=== PATIENT | female | born 1935 | race Caucasian/White ===

== ENCOUNTER 2018-01-03 22:11 | Inpatient (IN) | payer MEDICARE ==
[~2018-01-03] VITALS: Ht 154.9 cm; Wt 71.9 kg
[~2018-01-03 22:11] MED LIST: ABIL5TAB6 PO; COUM1TAB PO; HYDR-3133 PO; LISI-363 PO; NORC7.5T PO; PROT40TA PO; REST30CA PO; SERT100 PO; TRAV0.00 EACH EYE; Z.0.COMMODE-3:1; Z.0.WALKERFRONT; ZOCO40TA PO
[2018-01-04 01:30] VITALS: BP 156/90; PULSE 94; RESP 16; TEMP 97.8; O2SAT 94
[2018-01-04] MEDS ORDERED: LORazepam 0.5 MG TAB age > 65 yrs PO PRN (02:15)
[2018-01-04] MEDS ORDERED: ALUMINUM/MAGNESIUM/SIMETH 30 ML CUP PO PRN ×2 (02:15→10:00)
[2018-01-04] MEDS ORDERED: ACETAMINOPHEN 325 MG TAB PO PRN ×2 (02:15→10:00)
[2018-01-04] MEDS ORDERED: MAGNESIUM HYDROXIDE SUSP 30 ML CUP PO PRN ×2 (02:15→10:00)
[2018-01-04] MEDS ORDERED: diphenhydrAMINE HCL 50 MG/ML VIAL - HS PRN IM (02:15)
[2018-01-04] MEDS ORDERED: diphenhydrAMINE HCL 50 MG CAP - HS PRN PO (02:15)
[2018-01-04] MEDS ORDERED: LORazepam 2 MG/ML VIAL - age > 65 yrs IM PRN (02:15)
[2018-01-04] MEDS ORDERED: hydrOXYzine HCL 50 MG TAB PO PRN ×2 (02:15→10:00)
[2018-01-04 05:58] VITALS: BP 177/69; PULSE 80; RESP 16; TEMP 98.8; O2SAT 94
[2018-01-04] MEDS ORDERED: cloNIDine HCL 0.1 MG TAB PO PRN (07:45)
[2018-01-04] MEDS: PANTOPRAZOLE SOD 40 MG DELAYED RELEASE TAB PO SCH ×2 (08:52→20:35)
[2018-01-04] MEDS: LISINOPRIL 20 MG TAB PO SCH ×2 (08:53→20:35)
[2018-01-04] MEDS: ASPIRIN 81 MG CHEW TAB PO SCH (08:54)
[2018-01-04] MEDS: NICOTINE 21 MG/24 HR PATCH T-DERMAL SCH (09:00)
[2018-01-04] MEDS: SERTRALINE HCL 100 MG TAB PO SCH (09:00)
--- NOTE | 2018-01-04 10:24 | HHI.HP ---
Provisional Diagnosis Admission Date Jan 04, 2018 at 01:13 [place] I. 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 Express and informed consent means consent voluntarily given in writing, by a competent person, after sufficient explanation and disclosure of the subject matter involved to enable the person to make a knowing and willful decision without any element of force, fraud, deceit, duress, or other form of constraint or coercion. This person is 18 years of age or older, is not now known to be incompetent to consent to treatment with a guardian advocate, and does not have a health care surrogate or proxy currently making medical treatment decisions. I have found this person to be one of the following: [xxx] Competent to provide express and informed consent, as defined above, for voluntary admission to this facility and is competent to provide express and informed consent for treatment. He/she has the consistent capacity to make well reasoned, willful, and knowing decisions concerning his or her medical or mental health treatment. The person fully and consistently understands the purpose of the admission for examination/placement and is fully capable of personally exercising all rights assured [place] Incompetent to provide express and informed consent to voluntary admission, and this is incompetent to provide express and informed consent to treatment. The person must be transferred to involuntary status and a petition for a guardian advocate filed with the Circuit Court. [] Refusing to provide express and informed consent to voluntary admission but is competent to provide express and informed consent for treatment. The person must be discharged or transferred to involuntary status. Form shall be completed within 24 hours of a person's arrival at the receiving facility and filed in the clinical record of each person: 1. Admitted on a voluntary basis 2. Permitted to provide express and informed consent to his/her own treatment 3. Allowed to transfer from involuntary to voluntary status 4. Prior to permitting a person to consent to his or her own treatment after having been previously found incompetent to consent to treatment. History of Present Illness Capacity: Has Capacity Psych Chief Complaint: patient depressed with suicidal ideation HPI Issues an 82-year-old white female who went to [facility] complaining of depression and abdominal pain. To Diaz acted at that facility by Dr. Jeferson Colon dated 01/03/18 that document reviewed since the states patient states she is having suicidal thoughts because she doesn't feel well patient seen screen and that ED urine toxicology negative bladder alcohol negative. Patient transferred for this hospital under the Diaz act. Patient seen in her room with nurse Wero, patient laying quietly in bed she is alert oriented appears stated age. She is calm cooperative with us she was oriented in all 4 spheres. Given the history of increased abdominal pain since having a colonoscopy and EGD done a number of months ago. Is also says she has had 2 of her sisters recently. She lives with her second for the past 35 years she also has a 27-year-old grandson living in the home. Appears might be some contentiousness in that relationship. In any event patient also acknowledges long history mental illness states she has some type of depression her reaction after the of her last child about 35 years ago. Patient been on various medications in the past including Abilify. She does see a clinician through [employer] act of of interest is that she does have some focal lingual movements it could be ascribed to a tardive type behavior. Patient does deny voices or visions with this acknowledges suicidal ideation stating that she would take the suicide pill if offered to her. She states her last hospitalization was a few years ago. She denies any alcohol or drug use related to this. She does deny any physical or sexual abuse. Denies any mental health history and family Review of Systems Constitutional: DENIES: Diaphoretic episodes, Fatigue, Fever, Weight gain, Weight loss, Chills, Dizziness, Change in appetite, Night Sweats Endocrine: DENIES: Abnorml menstrual pattern, Heat/cold intolerance, Polydipsia , Polyuria, Polyphagia Eyes: COMPLAINS OF: Blurred vision, DENIES: Diplopia, Eye inflammation, Eye pain, Vision loss, Photosensitivity, Double Vision Ears, nose, mouth, throat: COMPLAINS OF: Epistaxis, DENIES: Tinnitus, Hearing loss, Vertigo, Nasal discharge, Oral lesions, Throat pain, Hoarseness, Ear Pain , Running Nose, Sinus Pain, Toothache, Odynophagia Respiratory: DENIES: Apneas, Cough, Snoring, Wheezing, Hemoptysis, Sputum production, Shortness of breath Cardiovascular: DENIES: Chest pain, Palpitations, Syncope, Dyspnea on Exertion , PND, Lower Extremity Edema, Orthopnea, Claudication Gastrointestinal: COMPLAINS OF: Abdominal pain, Constipation, Diarrhea Genitourinary: DENIES: Abnormal vaginal bleeding, Dysmenorrhea, Dyspareunia, Sexual dysfunction, Urinary frequency, Urinary incontinence, Urgency, Hematuria , Dysuria, Nocturia, Vaginal discharge Musculoskeletal: DENIES: Joint pain, Muscle aches, Stiffness, Joint Swelling, Back pain, Neck pain Integumentary: DENIES: Abnormal pigmentation, Pruritus, Rash, Nail changes, Breast masses, Breast skin changes, Nipple discharge Hematologic/lymphatic: DENIES: Bruising, Lymphadenopathy Neurologic: COMPLAINS OF: Abnormal gait Psychiatric: COMPLAINS OF: Anxiety (difficult to ascertain patient laying quietly in bed), Depression, Suicidal Ideation Past Psych History Psychological trauma history Patient denies Violence risk - others (6 mos) Low Violence risk - self (6 mos) Patient would take suicide pill Substance Abuse History Drugs/Alcohol past 12 months Patient denies Past Family Social History Coded Allergies: Sulfa (Sulfonamide Antibiotics) (Unverified Allergy, Severe, SWELLING, ) morphine (Unverified Allergy, Severe, Nausea/Vomiting, 07/01/17) penicillin G (Unverified Allergy, Severe, RASH, 07/01/17) propoxyphene (Unverified Allergy, Severe, RASH, 07/01/17) Active Scripts Temazepam 30 mg (Restoril 30 mg) 30 Mg Cap, 30 MG PO HS for Insomnia, #30 TAB 0 Refills Prov:Dago Marrero MD 12/25/15 Walker Front Wheel (Walker Front Wheel) Device, 1 UNIT, #1 Prov:Rubina Renee 12/21/15 Commode-3:1 (Commode-3:1) Device, 1 UNIT, #1 Prov:Rubina Renee 12/21/15 Reported Medications Hydrocodone-Acetaminophen 7.5-325 mg (Grant 7.5-325 mg) 7.5 Mg/325 Mg Tab, 1-2 TAB PO Q6H Y for Pain Management, #50 TAB 12/25/15 Warfarin Sodium (Coumadin 1 mg) Warfarin Sodium 1 mg Tab, 1 MG PO DAILY for Prevent Blood Clot, #15 TAB 2/8/16 Travoprost (Travatan Z) 0.004 % Bob, 1 DROP EACH EYE HS, #5 ML 12/21/15 Hydroxyzine Hcl (Hydroxyzine Hcl) 25 Mg Tab, 25 MG PO BID Y for ANXIETY, TAB 12/21/15 Simvastatin (Zocor 40 mg) 40 Mg Tab, 1 TAB PO HS, TAB 12/21/15 Lisinopril 20 mg (Lisinopril 20 mg) 20 Mg Tab, 1 TAB PO BID, TAB 12/21/15 Aripiprazole (Abilify 5 mg) 5 Mg Tab, 5 MG PO DAILY, TAB 12/21/15 Pantoprazole Sod (Protonix) 40 Mg Tabdr, 40 MG PO BID, 0 Refills 04/03/09 Sertraline Hcl (Zoloft) 100 Mg Tab, 100 MG PO DAILY, 0 Refills 04/03/09 Current Medications Medications (Trade) Dose Ordered Sig/Becky Route Start Time Stop Time Status Last Admin (Ativan) 0.5 mg Q12H PRN PO 01/04/18 02:15 (Ativan Inj) 0.5 mg Q12H PRN IM 01/04/18 02:15 (Atarax) 50 mg Q6H PRN PO 01/04/18 02:15 (Benadryl) 50 mg HS PRN PO 01/04/18 02:15 (Benadryl Inj) 50 mg HS PRN IM 01/04/18 02:15 (Tylenol) 650 mg Q4H PRN PO 01/04/18 02:15 (Milk Of Magnesia Liq) 30 ml DAILY PRN PO 01/04/18 02:15 (Mag-Al Plus Susp Liq) 30 ml Q6H PRN PO 01/04/18 02:15 (Habitrol 21 Mg Patch.24 Hr) 1 patch DAILY T-DERMAL 01/04/18 09:00 Miscellaneous Information 1 HS T-DERMAL 01/04/18 21:00 (Prinivil) 20 mg BID PO 01/04/18 09:00 01/04/18 08:53 (Zoloft) 100 mg DAILY PO 01/04/18 09:00 (Pravachol) 80 mg HS PO 01/04/18 21:00 (Protonix) 40 mg BID PO 01/04/18 09:00 01/04/18 08:52 (Aspirin Chew) 81 mg DAILY PO 01/04/18 09:00 01/04/18 08:54 (Xalatan 0.005% Opth Soln) 2 drop HS EACH EYE 01/04/18 21:00 (Flu (Quadrivalent) Vaccine Inj) 0.5 ml ONCE ONCE IM 01/05/18 10:00 01/05/18 10:01 (Catapres) 0.1 mg Q6H PRN PO 01/04/18 07:45 Social History Patient lives with second and adult grandson. Has had 2 sisters within the past year or so Patient's Strengths (min. 2) Patient verbal able axis healthcare cooperative Physical Exam Patient medically cleared [facility], depressed time patient edition quietly in bed in the room nurse Weor present throughout session she is in no acute distress, she is in no respiratory distress. Made vague complaints of diffuse abdominal discomfort. Patient is able move all 4 extremities Vital Signs Vital Signs Date Time Temp Pulse Resp B/P (MAP) Pulse Ox O2 Delivery O2 Flow Rate FiO2 01/04/18 05:58 98.8 80 16 177/69 (105) 94 I/O 01/04/18 01/04/18 01/05/18 08:00 16:00 00:00 Intake Total 0 ml Balance 0 ml Mental Status Examination Appearance: Appropriate Consciousness: Alert Orientation: x4 Motor Activity: Normal gait (patient laying in bed difficult to assess) Speech: Unremarkable Language: Adequate Fund of Knowledge: Adequate Attention and Concentration: Other (fair) Memory: Unremarkable Mood: Sad, Anxious Affect: Other (good range and intensity) Thought Process & Associations: Intact Thought Content: Appropriate Hallucination Type: None Delusion Type: None Suicidal Ideation: Yes (with take suicide pill) Suicidal Plan: Yes (would take suicide) Suicidal Intention: Yes Homicidal Ideation: No Homicidal Plan: No Homicidal Intention: No Insight: Fair Judgment: Adequate Assessment & Plan Problem List: (1) Major depressive disorder, recurrent, severe w/o psychotic behavior ICD Codes: F33.2 - Major depressive disorder, recurrent severe without psychotic features Assessment & Plan Estimated LOS: 5-7 days at this time patient does meet criteria for inpatient psychiatric assessment treatment and observation. However feel patient does have capacity thus I'll lift Diaz act allow her sign voluntary. We'll consult hospitalist and neurology. Never PT assessment. We'll continue her Zoloft at 100 mg daily we will put the Abilify on hold in view of the benzodiazepines Discharge Planning Returning home with family Request HC Surrog/Guard Advoc?: No Abilio Ryan MD Jan 04, 2018 10:24
[2018-01-04 11:17] LABS: AUTOMATED NEUTROPHIL # 4.9 TH/MM3 (1.8-7.7); BASOPHIL % 0.3 % (0.0-2.0); EOSINOPHIL % 0.7 % (0.0-4.0); HEMATOCRIT 39.8 % (35.0-46.0); HEMOGLOBIN 13.4 GM/DL (11.6-15.3); LYMPH % 18.9 % (9.0-44.0); LYMPHOCYTE # 1.3 TH/MM3 (1.0-4.8); MEAN CELL VOLUME 81.7 FL (80.0-100.0); MEAN CORPUSCULAR HEMOGLOBIN 27.6 PG (27.0-34.0); MEAN CORPUSCULAR HGB CONC 33.8 % (32.0-36.0); MEAN PLATELET VOLUME 6.9 FL (7.0-11.0); MONOCYTE # 0.5 TH/MM3 (0-0.9); NEUT % 73.1 % (16.0-70.0); PLATELET COUNT 204 TH/MM3 (150-450); RED BLOOD COUNT 4.87 MIL/MM3 (4.00-5.30); WHITE BLOOD COUNT 6.8 TH/MM3 (4.0-11.0)
[2018-01-04 11:31] LABS: ALBUMIN 3.8 GM/DL (3.4-5.0); ALT (GPT) 31 U/L (10-53); AST (GOT) 27 U/L (15-37); BICARBONATE 26.6 MEQ/L (21.0-32.0); BLOOD UREA NITROGEN 13 MG/DL (7-18); CHLORIDE 99 MEQ/L (98-107); CREATININE 0.85 MG/DL (0.50-1.00); GLOMERULAR FILTRATION RATE 64 ML/MIN (>89); GLUCOSE,RANDOM 108 MG/DL (74-106); SODIUM (NA) 134 MEQ/L (136-145)
[2018-01-04 11:41] LABS: ALKALINE PHOSPHATASE 79 U/L (45-117); TOTAL BILIRUBIN ADULT 0.6 MG/DL (0.2-1.0); TOTAL PROTEIN 7.5 GM/DL (6.4-8.2)
--- NOTE | 2018-01-04 14:53 | PD.CONS ---
HPI Service [facility] Hospitalists Consult Requested By Psychiatric services Reason for Consult Medical management Primary Care Physician Unknown Diagnoses: History of Present Illness Written by Mayda Durham, acting as scribe for Dr. Bruce on 01/04/18 at 14: 49. This is a 82-year-old female with a past medical history significant for depression, anxiety, history of medication overdose, hypertension, diet- controlled diabetic, glaucoma and previous TIA who was admitted under Diaz act to the inpatient psychiatric unit from [facility] for suicidal ideation. Hospitalist services have been consulted for medical management. Patient seen and examined. She complains of occasional episodes of shortness of breath with associated anxiety. She denies any complaints of chest pain. Patient states that she had an EGD and colonoscopy November 07 of last year and since then has had issues with ongoing nausea, difficulty swallowing both liquids and solids and intermittent episodes of diarrhea and constipation. Patient states that she feels as if food gets stuck does not make it into her stomach. She states her stomach always feels empty. She also complains of having headaches for the past 2 months and recurrent falls. She has tingling in both hands and left leg. Neurology services have been consulted by the primary team. Review of Systems Except as stated in HPI: all other systems reviewed are Neg Past Family Social History Allergies: Coded Allergies: Sulfa (Sulfonamide Antibiotics) (Unverified Allergy, Severe, SWELLING, ) morphine (Unverified Allergy, Severe, Nausea/Vomiting, 01/05/18) penicillin G (Unverified Allergy, Severe, RASH, 01/05/18) propoxyphene (Unverified Allergy, Severe, RASH, 01/05/18) Past Medical History Hypertension History of medication overdose Depression/anxiety Diabetic, controlled with diet alone Glaucoma History of TIA Past Surgical History Right total hip replacement, 2016 Hysterectomy Cholecystectomy Active Ordered Medications Current Medications Medications (Trade) Dose Ordered Sig/Becky Route Start Time Stop Time Status Last Admin (Ativan) 0.5 mg Q12H PRN PO 01/04/18 02:15 (Ativan Inj) 0.5 mg Q12H PRN IM 01/04/18 02:15 (Atarax) 50 mg Q6H PRN PO 01/04/18 02:15 (Benadryl) 50 mg HS PRN PO 01/04/18 02:15 (Benadryl Inj) 50 mg HS PRN IM 01/04/18 02:15 (Tylenol) 650 mg Q4H PRN PO 01/04/18 02:15 (Milk Of Magnesia Liq) 30 ml DAILY PRN PO 01/04/18 02:15 (Mag-Al Plus Susp Liq) 30 ml Q6H PRN PO 01/04/18 02:15 (Habitrol 21 Mg Patch.24 Hr) 1 patch DAILY T-DERMAL 01/04/18 09:00 Miscellaneous Information 1 HS T-DERMAL 01/04/18 21:00 (Prinivil) 20 mg BID PO 01/04/18 09:00 01/04/18 08:53 (Zoloft) 100 mg DAILY PO 01/04/18 09:00 01/04/18 09:00 (Pravachol) 80 mg HS PO 01/04/18 21:00 (Protonix) 40 mg BID PO 01/04/18 09:00 01/04/18 08:52 (Aspirin Chew) 81 mg DAILY PO 01/04/18 09:00 01/04/18 08:54 (Xalatan 0.005% Opth Soln) 2 drop HS EACH EYE 01/04/18 21:00 (Flu (Quadrivalent) Vaccine Inj) 0.5 ml ONCE ONCE IM 01/05/18 10:00 01/05/18 10:01 (Catapres) 0.1 mg Q6H PRN PO 01/04/18 07:45 Family History Father, age 78, COPD Mother, age 81, [place] Sister, diabetes Social History Patient denies any tobacco use, alcohol consumption or illicit drug use. Physical Exam Vital Signs Vital Signs Date Time Temp Pulse Resp B/P (MAP) Pulse Ox O2 Delivery O2 Flow Rate FiO2 01/04/18 05:58 98.8 80 16 177/69 (105) 94 01/04/18 01:30 97.8 94 16 156/90 (112) 94 Physical Exam GENERAL: This is a well-nourished, well-developed elderly female patient, in no apparent distress. Awake and alert. Sitting in chair in day room. SKIN: No rashes, ecchymoses or lesions. Cool and dry. HEAD: Atraumatic. Normocephalic. No temporal or scalp tenderness. EYES: Pupils equal round and reactive. Extraocular motions intact. No scleral icterus. No injection or drainage. ENT: Nose without bleeding or purulent drainage. Throat without erythema, tonsillar hypertrophy or exudate. Uvula midline. Airway patent. Lacking dentition. NECK: Trachea midline. No JVD or lymphadenopathy. Supple, nontender, no meningeal signs. CARDIOVASCULAR: Regular rate and rhythm without murmurs, gallops, or rubs. RESPIRATORY: Clear to auscultation. Breath sounds equal bilaterally. No wheezes , rales, or rhonchi. GASTROINTESTINAL: Abdomen soft, non-tender, nondistended. No hepato-splenomegaly , or palpable masses. No guarding. MUSCULOSKELETAL: Extremities without clubbing, cyanosis, or edema. No joint tenderness, effusion, or edema noted. No calf tenderness. NEUROLOGICAL: Awake and alert. Cranial nerves II through XII grossly intact. Motor and sensory grossly within normal limits. Five out of 5 muscle strength in all muscle groups. Normal speech. Laboratory Laboratory Tests Test 01/04/18 10:05 White Blood Count 6.8 Red Blood Count 4.87 Hemoglobin 13.4 Hematocrit 39.8 Mean Corpuscular Volume 81.7 Mean Corpuscular Hemoglobin 27.6 Mean Corpuscular Hemoglobin Concent 33.8 Red Cell Distribution Width 14.0 Platelet Count 204 Mean Platelet Volume 6.9 Neutrophils (%) (Auto) 73.1 Lymphocytes (%) (Auto) 18.9 Monocytes (%) (Auto) 7.0 Eosinophils (%) (Auto) 0.7 Basophils (%) (Auto) 0.3 Neutrophils # (Auto) 4.9 Lymphocytes # (Auto) 1.3 Monocytes # (Auto) 0.5 Eosinophils # (Auto) 0.0 Basophils # (Auto) 0.0 CBC Comment DIFF FINAL Differential Comment Blood Urea Nitrogen 13 Creatinine 0.85 Random Glucose 108 Total Protein 7.5 Albumin 3.8 Calcium Level 9.0 Alkaline Phosphatase 79 Aspartate Amino Transf (AST/SGOT) 27 Alanine Aminotransferase (ALT/SGPT) 31 Total Bilirubin 0.6 Sodium Level 134 Potassium Level 4.1 Chloride Level 99 Carbon Dioxide Level 26.6 Anion Gap 8 Estimat Glomerular Filtration Rate 64 Hemoglobin A1c 6.0 Thyroid Stimulating Hormone 3rd Gen 1.750 Result Diagram: 01/04/18 1005 01/04/18 1005 Assessment and Plan Assessment and Plan 82-year-old female with a past medical history significant for depression, anxiety, history of medication overdose, hypertension, diet- controlled diabetic, glaucoma and previous TIA who was admitted under Diaz act to the inpatient psychiatric unit from [facility] for suicidal ideation. Hospitalist services have been consulted for medical management. //Depression //Anxiety //Suicidal ideation -Management per psychiatric team //Recurrent falls //Headaches //Numbness/tingling bilateral hands and left leg //hx of TIA -Neurology consulted by primary team -PT eval/tx -Continue on aspirin and statin therapy daily //Dysphagia //Constant nausea //Intermittent diarrhea and constipation -patient reports sxs began following panendoscopy Nov 07 of last year -patient on Protonix 40mg BID -will request medical records regarding procedure/findings -Consult GI, appreciate recommendations //Hypertension -Patient continued on home dose of lisinopril 20 mg twice daily -Continue to monitor. Continue to monitor BP and adjust treatment accordingly //Diabetic, diet controlled -diabetic heart healthy diet -HgbA1c 6.0 -accuchecks and ISS. If blood sugars remain well controlled, will consider discontinuation of Accu-Cheks and insulin sliding scale //Dyslipidemia -Resume home dose of Pravachol 80 mg daily //Glaucoma -Resume Xalatan eyedrops //DVT prophylaxis -Patient is ambulatory Thank you very kindly for this consultation. We will continue to follow along with you. Discussed Condition With patient This note was transcribed by milady Durham. I, Dr. Abran Bruce personally performed the history, physical exam, and medical decision making; and confirmed the accuracy of the information in the transcribed note. Authenticated by Dr. Abran Bruce on 01/06/18 at 05:59. Mayda Durham Jan 04, 2018 14:53 Abran Bruce MD Jan 06, 2018 05:58
--- NOTE | 2018-01-04 17:13 | PD.CONS ---
HPI History of Present Illness This is a 82 year old female with hx depression who presented as issa act from [facility] for suicidal ideation. GI has been consulted for nausea, dysphagia, and alternating diarrhea and constipation. Pt says she has had these symptoms, along with lower abd pain since her [facility]. The only finding she can tell me is "puss pockets." She says she has burning in her throat adn pain when she swallows. c /o alternating diarrhea and constipation. A few days ago she has loose stool but today she has not had a BM. Denies n/v, blood in stool, black tarry stool. Tried to obtain records but [facility] remote access not functioning currently. She is a limited historian and her speech is difficult to understand. (Marcela Ovalles) PFSH Past Medical History depression HTN Past Surgical History knee surgery hip replacement ?abd surgery (Marcela Ovalles) Coded Allergies: Sulfa (Sulfonamide Antibiotics) (Unverified Allergy, Severe, SWELLING, ) morphine (Unverified Allergy, Severe, Nausea/Vomiting, 07/01/17) penicillin G (Unverified Allergy, Severe, RASH, 07/01/17) propoxyphene (Unverified Allergy, Severe, RASH, 07/01/17) Family History unable to obtain Social History denies toxic habits (Marcela Ovalles) Review of Systems Constitutional: DENIES: Fever Endocrine: DENIES: Polydipsia Eyes: DENIES: Blurred vision Ears, nose, mouth, throat: DENIES: Hearing loss Respiratory: DENIES: Cough Cardiovascular: DENIES: Chest pain Gastrointestinal: COMPLAINS OF: Abdominal pain, Constipation, Diarrhea, Odynophagia, DENIES: Black stools, Bloody stools, Nausea, Vomiting Genitourinary: DENIES: Hematuria Musculoskeletal: DENIES: Muscle aches Integumentary: DENIES: Jaundice Neurologic: COMPLAINS OF: Abnormal gait (ambulates with walker) Psychiatric: COMPLAINS OF: Depression (Marcela Ovalles) GI Exam Vitals I&O Vital Signs Date Time Temp Pulse Resp B/P (MAP) Pulse Ox O2 Delivery O2 Flow Rate FiO2 01/04/18 05:58 98.8 80 16 177/69 (105) 94 01/04/18 01:30 97.8 94 16 156/90 (112) 94 I/O 01/03/18 01/03/18 01/03/18 01/04/18 01/04/18 01/04/18 07:00 15:00 23:00 07:00 15:00 23:00 Intake Total 0 ml 360 ml Balance 0 ml 360 ml Intake Oral 0 ml 360 ml # Voids 1 Laboratory Test 01/04/18 10:05 White Blood Count 6.8 TH/MM3 Red Blood Count 4.87 MIL/MM3 Hemoglobin 13.4 GM/DL Hematocrit 39.8 % Mean Corpuscular Volume 81.7 FL Mean Corpuscular Hemoglobin 27.6 PG Mean Corpuscular Hemoglobin Concent 33.8 % Red Cell Distribution Width 14.0 % Platelet Count 204 TH/MM3 Mean Platelet Volume 6.9 FL Neutrophils (%) (Auto) 73.1 % Lymphocytes (%) (Auto) 18.9 % Monocytes (%) (Auto) 7.0 % Eosinophils (%) (Auto) 0.7 % Basophils (%) (Auto) 0.3 % Neutrophils # (Auto) 4.9 TH/MM3 Lymphocytes # (Auto) 1.3 TH/MM3 Monocytes # (Auto) 0.5 TH/MM3 Eosinophils # (Auto) 0.0 TH/MM3 Basophils # (Auto) 0.0 TH/MM3 CBC Comment DIFF FINAL Differential Comment Blood Urea Nitrogen 13 MG/DL Creatinine 0.85 MG/DL Random Glucose 108 MG/DL Total Protein 7.5 GM/DL Albumin 3.8 GM/DL Calcium Level 9.0 MG/DL Alkaline Phosphatase 79 U/L Aspartate Amino Transf (AST/SGOT) 27 U/L Alanine Aminotransferase (ALT/SGPT) 31 U/L Total Bilirubin 0.6 MG/DL Sodium Level 134 MEQ/L Potassium Level 4.1 MEQ/L Chloride Level 99 MEQ/L Carbon Dioxide Level 26.6 MEQ/L Anion Gap 8 MEQ/L Estimat Glomerular Filtration Rate 64 ML/MIN Hemoglobin A1c 6.0 % Thyroid Stimulating Hormone 3rd Gen 1.750 uIU/ML Physical Examination HEENT: PERRL; normocephalic; atraumatic; no jaundice. CHEST: CTA CARDIAC: RRR ABDOMEN: Soft, nondistended, nontender; no hepatosplenomegaly; bowel sounds are present in all four quadrants. EXTREMITIES: No clubbing, cyanosis, or edema. SKIN: Normal; no rash; no jaundice. TEST ENGINEERING TECHNICIAN: alert and oriented (Marcela Ovalles) Assessment and Plan Plan ASSESSMENT - odynophagia ? dysphagia - painful swallowing since her EGD 10/2017 only finding she can recall is "puss pockets" and not sure which procedure this refers to. Unable to access [facility] records d/t some unk technical difficulty - abd pain, alternating diarrhea and constipation - had colonoscopy 10/2017 findings unclear PLAN - EGD tomorrow - obtain consent - NPO after midnight - obtain records from [facility] - soft diet - continue BID protonix - consider CT abd - further recs to follow pt seen by myself and Dr Begum and this note is written on her behalf (Marcela Ovalles) Physician Comments seen, examined agree with above (Denae Begum MD) Marcela Ovalles Jan 04, 2018 17:12 Denae Begum MD Jan 04, 2018 18:28
[2018-01-04 18:01] VITALS: BP 126/60; PULSE 80; RESP 16; TEMP 98.8; O2SAT 94
[2018-01-04 18:25] VITALS: BP 135/75; PULSE 80
[2018-01-04] MEDS: LATANOPROST 0.005% OPHT SOLN 2.5 ML BTL EACH EYE SCH (20:35)
[2018-01-04] MEDS ORDERED: LISINOPRIL 20 MG TAB PO SCH (21:00)
[2018-01-04] MEDS ORDERED: SIMVASTATIN PO SCH (21:00)
[2018-01-04] MEDS ORDERED: TRAVOPROST EACH EYE SCH (21:00)
[2018-01-04] MEDS ORDERED: PANTOPRAZOLE SOD 40 MG DELAYED RELEASE TAB PO SCH (21:00)
[2018-01-04] MEDS ORDERED: PRAVASTATIN SOD 80 MG TAB PO SCH (21:00)
[2018-01-04] MEDS ORDERED: REMOVE OLD NICOTINE PATCH T-DERMAL SCH (21:00)
[2018-01-05] MEDS: LATANOPROST 0.005% OPHT SOLN 2.5 ML BTL EACH EYE SCH (00:04)
[2018-01-05 06:30] VITALS: BP 182/75; PULSE 77; RESP 18; TEMP 98.7; O2SAT 96
[2018-01-05] MEDS: SERTRALINE HCL 100 MG TAB PO SCH (09:00)
[2018-01-05] MEDS: NICOTINE 21 MG/24 HR PATCH T-DERMAL SCH (09:00)
[2018-01-05] MEDS ORDERED: SERTRALINE HCL 100 MG TAB PO SCH (09:00)
[2018-01-05] MEDS: LISINOPRIL 20 MG TAB PO SCH (09:02)
[2018-01-05] MEDS: PANTOPRAZOLE SOD 40 MG DELAYED RELEASE TAB PO SCH (09:02)
[2018-01-05] MEDS: ASPIRIN 81 MG CHEW TAB PO SCH (09:03)
[2018-01-05] MEDS ORDERED: INFLUENZA VIRUS VACCINE (QUADRIVALENT) 0.5 ML SYR IM ONE (10:00)
--- NOTE | 2018-01-05 11:33 | HHI.DS ---
Psychiatry Discharge Summary Inpatient Psychiatric care?: Yes Advance Directive: No Reason Not Provided: Due to Patient Condition Mental Health AdvanceDirective: No Health Care Proxy: No Admission Admission Date Jan 04, 2018 at 01:13 Admission Diagnosis: (1) Major depressive disorder, recurrent, severe w/o psychotic behavior ICD Code: F33.2 - Major depressive disorder, recurrent severe without psychotic features Brief History Issues an 82-year-old white female who went to [facility] complaining of depression and abdominal pain. Rustam Diaz acted at that facility by Dr. Jeferson Colon dated 01/03/18 that document reviewed since the states patient states she is having suicidal thoughts because she doesn't feel well patient seen screen and that ED urine toxicology negative bladder alcohol negative. Patient transferred for this hospital under the Diaz act. Patient seen in her room with nurse Wero, patient laying quietly in bed she is alert oriented appears stated age. She is calm cooperative with us she was oriented in all 4 spheres. Given the history of increased abdominal pain since having a colonoscopy and EGD done a number of months ago. Is also says she has had 2 of her sisters recently. She lives with her second for the past 35 years she also has a 27-year-old grandson living in the home. Appears might be some contentiousness in that relationship. In any event patient also acknowledges long history mental illness states she has some type of depression her reaction after the of her last child about 35 years ago. Patient been on various medications in the past including Abilify. She does see a clinician through [employer] act of of interest is that she does have some focal lingual movements it could be ascribed to a tardive type behavior. Patient does deny voices or visions with this acknowledges suicidal ideation stating that she would take the suicide pill if offered to her. She states her last hospitalization was a few years ago. She denies any alcohol or drug use related to this. She does deny any physical or sexual abuse. Denies any mental health history and family Tobacco Use In Past 30 Days: No Tobacco Past 30 Days Alcohol Use: Never Hospital Course Patient is scheduled for endoscopy today. Patient needs to be discharged from the psychiatric unit to be admitted to the medical unit to allow for the endoscopy to be performed. Thus this is a discharge summary related to that procedure. Patient to be readmitted to the psychiatric unit if medically stable after the procedure. Otherwise patient has been calm down here denies suicidality at this time is been compliant with her medication Results Blood Pressure 182 / 75 Vital Signs Date Time Temp Pulse Resp B/P (MAP) Pulse Ox O2 Delivery O2 Flow Rate FiO2 01/05/18 06:30 98.7 77 18 182/75 (110) 96 Laboratory Tests Test 01/04/18 10:05 Mean Platelet Volume 6.9 FL (7.0-11.0) Neutrophils (%) (Auto) 73.1 % (16.0-70.0) Random Glucose 108 MG/DL (74-106) Sodium Level 134 MEQ/L (136-145) Estimat Glomerular Filtration Rate 64 ML/MIN (>89) Laboratory Results Test 01/04/18 10:05 Hemoglobin A1c 6.0 % (4.3-6.0) Summary of Procedures Patient scheduled for endoscopy after this discharge Pending results at discharge: No Medications # of Antipsychotic meds at D/C: 0 Approp Antipsych med options 1 - Minimum of three failed multiple trials of monotherapy. 2 - Documented plan to taper to monotherapy due to previous use of multiple meds OR cross-taper in progress at D/C. 3 - Documentation of augmentation of Clozapine. 4 - Justification other than those listed in allowable values 1-3, document here : Discharge Discharge Date: Jan 05, 2018 Discharge Diagnosis: (1) Major depressive disorder, recurrent, severe w/o psychotic behavior Diagnosis: Principal ICD Code: F33.2 - Major depressive disorder, recurrent severe without psychotic features Pt Condition on Discharge: Stable Discharge Disposition: Hospice/Med Facility Discharge Instructions Diet Instructions: As Tolerated, No Restrictions Activities you can perform: Regular-No Restrictions Scheduled Appointment: discharge H[facility] at the [facility] for endoscopy Discharge Time > 30 minutes Mental Status Examination Appearance: Appropriate Consciousness: Alert Orientation: x4 Motor Activity: Normal gait (patient laying in bed difficult to assess) Speech: Unremarkable Language: Adequate Fund of Knowledge: Adequate Attention and Concentration: Other (fair) Memory: Unremarkable Mood: Sad, Anxious Affect: Other (good range and intensity) Thought Process & Associations: Intact Thought Content: Appropriate Hallucination Type: None Delusion Type: None Suicidal Ideation: Yes (with take suicide pill) Suicidal Plan: Yes (would take suicide) Suicidal Intention: Yes Homicidal Ideation: No Homicidal Plan: No Homicidal Intention: No Insight: Fair Judgment: Adequate Discharge/Advance Care Plan Health Problems: (1) Major depressive disorder, recurrent, severe w/o psychotic behavior Goals to promote your health * To prevent worsening of your condition and complications * To maintain your health at the optimal level Directions to meet your goals Take your medications as prescribed Follow your dietary instruction Follow activity as directed Keep your appointments as scheduled Take your immunizations and boosters as scheduled If your symptoms worsen call your PCP, if no PCP go to Urgent Care Center or Emergency Room For 09/06 questions related to your inpatient stay or results of tests pending at discharge, please contact Dr. Abilio Ryan at Smoking is Dangerous to Your Health. Avoid second hand smoking Abilio Ryan MD Jan 05, 2018 11:33
== END 2018-01-05 11:00 | disposition short-term general hospital (02) | DRG 885 ==
LOC: H250 01-04 01:13
PROVIDERS: ADMIT Psychiatry & Neurology Psychiatry; ATTEND Psychiatry & Neurology Psychiatry
DX: F33.2 Major depressive disorder, recurrent severe without psychotic features (principal); E11.9 Type 2 diabetes mellitus without complications; R45.851 Suicidal ideations; R13.10 Dysphagia, unspecified; I10 Essential (primary) hypertension; F41.9 Anxiety disorder, unspecified; Z96.641 Presence of right artificial hip joint; R29.6 Repeated falls; R51 Headache; R11.0 Nausea; E78.5 Hyperlipidemia, unspecified; H40.9 Unspecified glaucoma; K59.00 Constipation, unspecified; R10.30 Lower abdominal pain, unspecified; Z86.73 Personal history of transient ischemic attack (TIA), and cerebral infarction without residual deficits; Z91.5 Personal history of self-harm
CPT/HCPCS: 80053; 83036; 84443; 85025; Q0163

== ENCOUNTER 2018-01-05 13:32 | Inpatient (IN) | payer MEDICARE ==
[~2018-01-05 13:32] MED LIST changes: -ARIP1TAB11 PO; -HYDR50TA94 PO; -LIDOCAINE HCL 1% PF 5 ML SYRINGE OTHER ONE; -LISI-515 PO; -PANT40TA3 PO; -PRAV80TA PO; -PROPOFOL 200 MG/20 ML AMP IV ONE; -ZOLO100T PO
[2018-01-05] MEDS ORDERED: MAGNESIUM HYDROXIDE SUSP 30 ML CUP PO PRN (14:15)
[2018-01-05] MEDS ORDERED: ALUMINUM/MAGNESIUM/SIMETH 30 ML CUP PO PRN (14:15)
[2018-01-05] MEDS ORDERED: ACETAMINOPHEN 325 MG TAB PO PRN (14:15)
--- NOTE | 2018-01-05 14:29 | HHI.HP ---
Provisional Diagnosis Admission Date Jan 05, 2018 at 13:32 [place] I. Major depressive disorder recurrent severe without psychosis F 33.2 Certification of Person's Competence To Provide Express and Informed Consent I have personally examined Chrissy Sanchez , a person being served at [facility] on, Jan 05, 2018 14:24. Express and informed consent means consent voluntarily given in writing, by a competent person, after sufficient explanation and disclosure of the subject matter involved to enable the person to make a knowing and willful decision without any element of force, fraud, deceit, duress, or other form of constraint or coercion. This person is 18 years of age or older, is not now known to be incompetent to consent to treatment with a guardian advocate, and does not have a health care surrogate or proxy currently making medical treatment decisions. I have found this person to be one of the following: [] Competent to provide express and informed consent, as defined above, for voluntary admission to this facility and is competent to provide express and informed consent for treatment. He/she has the consistent capacity to make well reasoned, willful, and knowing decisions concerning his or her medical or mental health treatment. The person fully and consistently understands the purpose of the admission for examination/placement and is fully capable of personally exercising all rights assured [place] [] Incompetent to provide express and informed consent to voluntary admission, and this is incompetent to provide express and informed consent to treatment. The person must be transferred to involuntary status and a petition for a guardian advocate filed with the Circuit Court. [x] Refusing to provide express and informed consent to voluntary admission but is competent to provide express and informed consent for treatment. The person must be discharged or transferred to involuntary status. Form shall be completed within 24 hours of a person's arrival at the receiving facility and filed in the clinical record of each person: 1. Admitted on a voluntary basis 2. Permitted to provide express and informed consent to his/her own treatment 3. Allowed to transfer from involuntary to voluntary status 4. Prior to permitting a person to consent to his or her own treatment after having been previously found incompetent to consent to treatment. History of Present Illness Capacity: Lacks Capacity HPI Patient was just discharged from so she could receive a colonoscopy. This was accomplished. The patient being readmitted a few hours later under a new ability number thus this note has to be dictated. Please see dictation under that visit number I just mentioned for full H and P thank you Review of Systems Except as stated in HPI: all other systems reviewed are Neg Past Psych History Psychological trauma history None noted at this time Violence risk - others (6 mos) Low Violence risk - self (6 mos) Low to moderate Substance Abuse History Drugs/Alcohol past 12 months Denies Past Family Social History Coded Allergies: Sulfa (Sulfonamide Antibiotics) (Unverified Allergy, Severe, SWELLING, ) morphine (Unverified Allergy, Severe, Nausea/Vomiting, 01/05/18) penicillin G (Unverified Allergy, Severe, RASH, 01/05/18) propoxyphene (Unverified Allergy, Severe, RASH, 01/05/18) Active Scripts Temazepam 30 mg (Restoril 30 mg) 30 Mg Cap, 30 MG PO HS for Insomnia, #30 TAB 0 Refills Prov:Dago Marrero MD 12/25/15 Walker Front Wheel (Walker Front Wheel) Device, 1 UNIT, #1 Prov:Rubina Renee 12/21/15 Commode-3:1 (Commode-3:1) Device, 1 UNIT, #1 Prov:Rubina Renee 12/21/15 Reported Medications Hydrocodone-Acetaminophen 7.5-325 mg ([place] 7.5-325 mg) 7.5 Mg/325 Mg Tab, 1-2 TAB PO Q6H Y for Pain Management, #50 TAB 12/25/15 Warfarin Sodium (Coumadin 1 mg) Warfarin Sodium 1 mg Tab, 1 MG PO DAILY for Prevent Blood Clot, #15 TAB 12/25/15 Travoprost (Travatan Z) 0.004 % Bob, 1 DROP EACH EYE HS, #5 ML 12/21/15 Hydroxyzine Hcl (Hydroxyzine Hcl) 25 Mg Tab, 25 MG PO BID Y for ANXIETY, TAB 12/21/15 Simvastatin (Zocor 40 mg) 40 Mg Tab, 1 TAB PO HS, TAB 12/21/15 Lisinopril 20 mg (Lisinopril 20 mg) 20 Mg Tab, 1 TAB PO BID, TAB 12/21/15 Aripiprazole (Abilify 5 mg) 5 Mg Tab, 5 MG PO DAILY, TAB 12/21/15 Pantoprazole Sod (Protonix) 40 Mg Tabdr, 40 MG PO BID, 0 Refills 04/03/09 Sertraline Hcl (Zoloft) 100 Mg Tab, 100 MG PO DAILY, 0 Refills 04/03/09 Family Psych History Unknown at this time Social History Please see previous history Patient's Strengths (min. 2) Patient verbal intellectual self care Physical Exam Please see prior H&P Mental Status Examination Mental Status Exam Remarks Please see prior H&P and mental status exam Assessment & Plan Problem List: (1) Major depressive disorder, recurrent, severe w/o psychotic behavior ICD Codes: F33.2 - Major depressive disorder, recurrent severe without psychotic features Assessment & Plan Estimated LOS: days this a continuation of patient's immediately prior hospitalization that she was discharged from so that she can have a colonoscopy. This was accomplished she is now being readmitted to the psychiatric unit for further care and assessment Discharge Planning To be determined Abilio Ryan MD Jan 05, 2018 14:29
--- NOTE | 2018-01-05 15:12 | PD.CONS ---
HPI Service [facility] Hospitalists Consult Requested By Clement Ryan Reason for Consult Medical management Primary Care Physician Unknown Diagnoses: (1) Depression (2) Hyperlipidemia (3) GERD (gastroesophageal reflux disease) (4) Glaucoma (5) HTN (hypertension) (6) Osteoarthritis of right hip (7) Major depressive disorder, recurrent, severe w/o psychotic behavior History of Present Illness This is a 82-year-old female with a past medical history significant for depression, anxiety, history of medication overdose, hypertension, diet- controlled diabetic, glaucoma and previous TIA. The patient was recently admitted under Diaz act to the inpatient psychiatric unit from [facility] for suicidal ideation. Hospitalist services have been consulted for medical management. She was admitted to our hospital for management. Patient complained of epigastric pain. She denies any complaints of chest pain. Patient states that she had an EGD and colonoscopy November 07 of last year and since then has had issues with ongoing nausea, difficulty swallowing both liquids and solids and intermittent episodes of diarrhea and constipation. Patient stated that she feels as if food gets stuck does not make it into her stomach. She states her stomach always feels empty. She also complains of having headaches for the past 2 months and recurrent falls. She has tingling in both hands and left leg. Neurology services have been consulted. Also GI was consulted and patient had EGD with findings of Grade A esophagitis. Patient on PPI also biopsies pending. Patient was DC for colonoscopy today and readmitted to psych unit for further management. Colonoscopy results are pending at this time. No nausea or vomiting today. Has less epigastric pain. Review of Systems Except as stated in HPI: all other systems reviewed are Neg Past Family Social History Allergies: Coded Allergies: Sulfa (Sulfonamide Antibiotics) (Unverified Allergy, Severe, SWELLING, ) morphine (Unverified Allergy, Severe, Nausea/Vomiting, 01/05/18) penicillin G (Unverified Allergy, Severe, RASH, 01/05/18) propoxyphene (Unverified Allergy, Severe, RASH, 01/05/18) Past Medical History Hypertension History of medication overdose Depression/anxiety Diabetic, controlled with diet alone Glaucoma History of TIA Past Surgical History Right total hip replacement, 2016 Hysterectomy Cholecystectomy Reported Medications Reported Meds & Active Scripts Active Restoril 30 mg (Temazepam) 30 Mg Cap 30 Mg PO HS Walker Front Wheel (Z.0.walkerfront) Device 1 Unit Commode-3:1 (Z.0.commode-3:1) Device 1 Unit Reported [place] 7.5-325 mg (Hydrocodone-Acetaminophen 7.5-325 mg) 7.5 Mg/325 Mg Tab 1-2 Tab PO Q6H PRN Coumadin 1 mg (Warfarin Sodium) Warfarin Sodium 1 mg Tab 1 Mg PO DAILY Travatan Z (Travoprost) 0.004 % Bob 1 Drop EACH EYE HS Hydroxyzine Hcl (Hydroxyzine HCl) 25 Mg Tab 25 Mg PO BID PRN Zocor 40 mg (Simvastatin) 40 Mg Tab 1 Tab PO HS Lisinopril 20 mg (Lisinopril) 20 Mg Tab 1 Tab PO BID Abilify 5 mg (Aripiprazole) 5 Mg Tab 5 Mg PO DAILY Protonix (Pantoprazole Sodium) 40 Mg Tabdr 40 Mg PO BID Zoloft (Sertraline HCl) 100 Mg Tab 100 Mg PO DAILY Family History Father, age 78, COPD Mother, age 81, [place] Sister, diabetes Social History Patient denies any tobacco use, alcohol consumption or illicit drug use. Physical Exam Physical Exam GENERAL: This is a well-nourished, well-developed patient, in no apparent distress. SKIN: No rashes, ecchymoses or lesions. Cool and dry. HEAD: Atraumatic. Normocephalic. No temporal or scalp tenderness. EYES: Pupils equal round and reactive. Extraocular motions intact. No scleral icterus. No injection or drainage. ENT: Nose without bleeding, purulent drainage or septal hematoma. Throat without erythema, tonsillar hypertrophy or exudate. Uvula midline. Airway patent. NECK: Trachea midline. No JVD or lymphadenopathy. Supple, nontender, no meningeal signs. CARDIOVASCULAR: Regular rate and rhythm without murmurs, gallops, or rubs. RESPIRATORY: Clear to auscultation. Breath sounds equal bilaterally. No wheezes , rales, or rhonchi. GASTROINTESTINAL: Abdomen soft, non-tender, nondistended. No hepato-splenomegaly , or palpable masses. No guarding. MUSCULOSKELETAL: Extremities without clubbing, cyanosis, or edema. No joint tenderness, effusion, or edema noted. No calf tenderness. Negative Homans sign bilaterally. NEUROLOGICAL: Awake and alert. Cranial nerves II through XII intact. Motor and sensory grossly within normal limits. Five out of 5 muscle strength in all muscle groups. Normal speech. Assessment and Plan Assessment and Plan 82-year-old female with a past medical history significant for depression, anxiety, history of medication overdose, hypertension, diet- controlled diabetic, glaucoma and previous TIA. Hospitalist services have been consulted for medical management. Depression Anxiety Suicidal ideation -Management per psychiatric team Recurrent falls Headaches Numbness/tingling bilateral hands and left leg Hx of TIA -Neurology consulted -PT eval/tx -Continue on aspirin and statin therapy daily Dysphagia Grade A Esophagitis per EGD by Dr Espana GI Constant nausea Intermittent diarrhea and constipation -patient reports sxs began following panendoscopy Nov 07 of last year -patient on Protonix 40mg BID -will request medical records regarding procedure/findings -Consult GI, appreciate recommendations.Had EGD 01/04/18 with Gr A esophagitis , biopsies pending continue PPIs. Also s/p colonoscopy 01/05/18 report results pending Hypertension -Patient continued on home dose of lisinopril 20 mg twice daily -Continue to monitor. Continue to monitor BP and adjust treatment accordingly Diabetic, diet controlled -diabetic heart healthy diet -Recent HgbA1c 6.0 -accuchecks and ISS. If blood sugars remain well controlled, will consider discontinuation of Accu-Cheks and insulin sliding scale Dyslipidemia -Resume home dose of Pravachol 80 mg daily Glaucoma -Resume Xalatan eyedrops DVT prophylaxis -Patient is ambulatory Thank you for this consultation. We will continue to follow along with you. Discussed Condition With patient, nurse Aurora Cabrera MD Jan 05, 2018 15:11
[2018-01-05 18:06] VITALS: BP 140/72; PULSE 81; RESP 18; TEMP 98.8; O2SAT 95
[2018-01-05] MEDS: LATANOPROST 0.005% OPHT SOLN 2.5 ML BTL EACH EYE SCH (21:00)
[2018-01-05] MEDS: LISINOPRIL 20 MG TAB PO SCH (21:55)
[2018-01-05] MEDS: diphenhydrAMINE HCL 50 MG CAP PO PRN (21:55)
[2018-01-05] MEDS: PANTOPRAZOLE SOD 40 MG DELAYED RELEASE TAB PO SCH (21:55)
[2018-01-05] MEDS: PRAVASTATIN SOD 80 MG TAB PO SCH (21:56)
[2018-01-06] MEDS: hydrOXYzine HCL 50 MG TAB PO PRN ×3 (03:19→20:50)
--- NOTE | 2018-01-06 08:42 | PD.PN.STU ---
Subjective Remarks This is an 82 y/o female who initially presented on 01/04 under a Diaz Act for suicidal ideation. She was screened in the [facility] ED and had a negative urine tox and alcohol level. She complained of abdominal pain with nausea and vomiting. She lives with her and a 27 y/o grandson. The patient denies hearing voices or having any hallucinations. She states that she has thoughts of harming herself and states that she would overdose on her sleeping pills at home. She has had suicidal thought before, at the age of 36 after she gave . She was evaluated by the hospitalist service for her epigastric pain and underwent a colonoscopy and endoscopy yesterday. She states that she is feeling better but has not been able to sleep. At home she states she normally takes temazepam. She did not sleep at all last night despite being given 50mg of diphenhydramine. She also complains of headaches over the past couple of weeks in the back of her head. She rates the pain as a 6/10 and says they are always there. Aleve does not help her and nothing makes it worse. She said she also has been having some blurry vision and has fallen and hit her head a few times over the past month. Objective Vitals Vital Signs Date Time Temp Pulse Resp B/P (MAP) Pulse Ox O2 Delivery O2 Flow Rate FiO2 01/05/18 18:06 98.8 81 18 140/72 (94) 95 I/O 01/05/18 01/05/18 01/05/18 01/06/18 01/06/18 01/06/18 07:00 15:00 23:00 07:00 15:00 23:00 Intake Total 240 ml 240 ml Balance 240 ml 240 ml Intake Oral 240 ml 240 ml Objective Remarks Appearance: Appropriate Consciousness: Alert Orientation: x4 Motor Activity: Pt laying in bed so unable to assess gait. She did have a right sided tremor in her arm and leg. She also had some tardive tongue and jaw movements. Speech: Unremarkable Language: Adequate Fund of Knowledge: Adequate Attention and Concentration: fair Memory: Unremarkable Mood: Sad, Anxious Affect: anxious, poor range Thought Process & Associations: Intact Thought Content: Appropriate Hallucination Type: None Delusion Type: None Suicidal Ideation: Yes Suicidal Plan: Yes (would take sleeping pills to OD) Suicidal Intention: Yes Homicidal Ideation: No Homicidal Plan: No Homicidal Intention: No Insight: Fair Judgment: fair Medications and IVs Current Medications Diphenhydramine HCl (Benadryl) 50 mg HS PRN PO INSOMNIA Last administered on at 21:55; Start 01/05/18 at 14:15 Acetaminophen (Tylenol) 650 mg Q4H PRN PO Pain 1-5 or Temp >101F; Start at 14:15 Magnesium Hydroxide (Milk Of Magnesia Liq) 30 ml DAILY PRN PO CONSTIPATION; Start 01/05/18 at 14:15 Al Hydrox/Mg Hydrox/Simethicone (Mag-Al Plus Susp Liq) 30 ml Q6H PRN PO DYSPEPSIA; Start 01/05/18 at 14:15 Hydroxyzine HCl (Atarax) 50 mg Q6H PRN PO ANXIETY Last administered on at 03:19; Start 01/05/18 at 14:15 Aripiprazole (Abilify) 5 mg DAILY PO ; Start 01/06/18 at 09:00; Status Future Hold Lisinopril (Prinivil) 20 mg BID PO Last administered on 01/05/18at 21:55; Start 01/05/18 at 21:00 Pantoprazole Sodium (Protonix) 40 mg BID PO Last administered on 01/05/18at 21: 55; Start 01/05/18 at 21:00 Sertraline HCl (Zoloft) 100 mg DAILY PO ; Start 01/06/18 at 09:00 Warfarin Sodium (Coumadin) 1 mg DAILY@1600 PO ; Start 01/06/18 at 16:00 Pravastatin Sodium (Pravachol) 80 mg HS PO Last administered on 01/05/18at 21:56 ; Start 01/05/18 at 21:00 Latanoprost (Xalatan 0.005% Opt Soln) 1 drop HS EACH EYE Last administered on 01/05/18at 21:00; Start 01/05/18 at 21:00 A/P Assessment and Plan 1. Major Depressive disorder w/o psychosis -Continue Zoloft (100mg daily) and continue Atarax 50mg PRN -Diphenhydramine 50mg PRN for sleep 2. Epigastric abdominal pain (resolving) -Followed by GI and [facility], pt underwent endoscopy and colonoscopy and found to have Grade A esophagitis. -Nausea and vomiting is improving -Protonix 40mg BID 3. Headache -consider head CT, consult neurology, patient has hx of falls and is on Coumadin Discharge Planning Patient plans to go home with her of 35 years. Juan M Ferris M3 Jan 06, 2018 08:42
[2018-01-06] MEDS: PANTOPRAZOLE SOD 40 MG DELAYED RELEASE TAB PO SCH ×2 (09:31→20:49)
[2018-01-06] MEDS: SERTRALINE HCL 100 MG TAB PO SCH (09:31)
[2018-01-06] MEDS: LISINOPRIL 20 MG TAB PO SCH ×2 (09:32→20:49)
--- NOTE | 2018-01-06 12:28 | HHI.PYPN ---
Subjective Remarks Patient seen in her room with nurse Eron, chart reviewed, patient discussed with nurse. Patient laying calmly in bed complaining of poor sleep last night. She complains of some mild anxiety though she does not appear anxious does not show any signs of anxiety. Patient is vague about suicidality at the present time. She'll voices showing some isolation to her room. Though no significant behavior problems Review of Systems Except as stated in HPI: all other systems reviewed are Neg Results Vitals/IOs Vital Signs Date Time Temp Pulse Resp B/P (MAP) Pulse Ox O2 Delivery O2 Flow Rate FiO2 01/05/18 18:06 98.8 81 18 140/72 (94) 95 Intake and Output 01/06/18 01/06/18 01/07/18 08:00 16:00 00:00 Intake Total 360 ml Balance 360 ml Assessment & Plan Problem List: (1) Major depressive disorder, recurrent, severe w/o psychotic behavior ICD Codes: F33.2 - Major depressive disorder, recurrent severe without psychotic features Assessment & Plan Estimated LOS: days patient continues depressed and somewhat isolating, compliant medications though has not started the Abilify. For now continue treatment Justification for Cont. Inpt. With this time patient will decompensate of placed on lower level of care Discharge Planning Complete to return home Abilio Ryan MD Jan 06, 2018 12:28
--- NOTE | 2018-01-06 14:11 | HHI.GIFU ---
Subjective Remarks Pt resting in bed, comfortable, in no apparent distress. No GI complaints at this time. (Malina Martinez) Objective Vitals I&O Vital Signs Date Time Temp Pulse Resp B/P (MAP) Pulse Ox O2 Delivery O2 Flow Rate FiO2 01/05/18 18:06 98.8 81 18 140/72 (94) 95 I/O 01/05/18 01/05/18 01/05/18 01/06/18 01/06/18 01/06/18 07:00 15:00 23:00 07:00 15:00 23:00 Intake Total 240 ml 240 ml 600 ml Balance 240 ml 240 ml 600 ml Intake Oral 240 ml 240 ml 600 ml Physical Exam HEENT: Normocephalic; atraumatic CHEST: Even/unlabored CARDIAC: RRR ABDOMEN: Soft, nondistended, nontender; bowel sounds active EXTREMITIES: No clubbing, cyanosis, or edema. SKIN: Normal; no rash; no jaundice. MANAGER PROPERTY: No focal deficits; alert and oriented times three. (Malina Martinez) Assessment and Plan Plan Assessment: - odynophagia ? dysphagia - painful swallowing since her EGD 10/2017 only finding she can recall is "puss pockets" and not sure which procedure this refers to. Unable to access [place] hospital records d/t some unk technical difficulty - abd pain, alternating diarrhea and constipation - had colonoscopy 10/2017 findings unclear (01/06) --> S/P EGD yesterday --> Class B esophagitis noted, erythematous gastritis in the gastric antrum. Normal duodenal mucosa. Biopsies taken. Pt with no GI complaints at this time Plan: Repeat EGD in one year Biopsies pending Continue Protonix GI will sign off, please reconsult as needed Have pt follow up with GI after discharge Pt has been seen and examined by myself and Dr. Espana and this note is written on his behalf (Malina Martinez) Physician Comments Seen and examined with WALKER, feeling better today. S/p egd, await biopsies. Advance diet as tolerated. Gi fu upon dc. Thank you (Erik Espana MD) Malina Martinez Jan 06, 2018 14:11 Erik Espana MD Jan 06, 2018 15:17
--- NOTE | 2018-01-06 15:09 | HHI.PR ---
Subjective Remarks In bed, Says she has no pain in her belly. Eating well. No n/v/d/c. No events overnight. No complaints at this time. Objective Vitals Vital Signs Date Time Temp Pulse Resp B/P (MAP) Pulse Ox O2 Delivery O2 Flow Rate FiO2 01/05/18 18:06 98.8 81 18 140/72 (94) 95 I/O 01/05/18 01/05/18 01/05/18 01/06/18 01/06/18 01/06/18 07:00 15:00 23:00 07:00 15:00 23:00 Intake Total 240 ml 240 ml 600 ml Balance 240 ml 240 ml 600 ml Intake Oral 240 ml 240 ml 600 ml Objective Remarks GENERAL: This is a well-nourished, well-developed patient, in no apparent distress. CARDIOVASCULAR: Regular rate and rhythm without murmurs, gallops, or rubs. RESPIRATORY: Clear to auscultation. Breath sounds equal bilaterally. No wheezes , rales, or rhonchi. GASTROINTESTINAL: Abdomen soft, non-tender, nondistended. No hepato-splenomegaly , or palpable masses. No guarding. MUSCULOSKELETAL: Extremities without clubbing, cyanosis, or edema. No joint tenderness, effusion, or edema noted. No calf tenderness. Negative Homans sign bilaterally. NEUROLOGICAL: Awake and alert. Cranial nerves II through XII intact. Motor and sensory grossly within normal limits. Five out of 5 muscle strength in all muscle groups. Normal speech. A/P Problem List: (1) Depression ICD Code: F32.9 - Major depressive disorder, single episode, unspecified Status: Acute (2) Hyperlipidemia ICD Code: E78.5 - Hyperlipidemia, unspecified Status: Chronic (3) GERD (gastroesophageal reflux disease) ICD Code: K21.9 - Gastro-esophageal reflux disease without esophagitis Status: Chronic (4) Glaucoma ICD Code: H40.9 - Unspecified glaucoma Status: Chronic (5) HTN (hypertension) ICD Code: I10 - Essential (primary) hypertension Status: Chronic (6) Osteoarthritis of right hip ICD Code: M16.11 - Unilateral primary osteoarthritis, right hip Status: Chronic (7) Major depressive disorder, recurrent, severe w/o psychotic behavior ICD Code: F33.2 - Major depressive disorder, recurrent severe without psychotic features Assessment and Plan 82-year-old female with a past medical history significant for depression, anxiety, history of medication overdose, hypertension, diet- controlled diabetic, glaucoma and previous TIA. Hospitalist services have been consulted for medical management. Depression Anxiety Suicidal ideation -Management per psychiatric team Recurrent falls Headaches Numbness/tingling bilateral hands and left leg Hx of TIA -Neurology consulted -PT eval/tx -Continue on aspirin and statin therapy daily Dysphagia Grade A Esophagitis per EGD by Dr Espana GI Constant nausea Intermittent diarrhea and constipation -patient reports sxs began following panendoscopy Nov 07 of last year -patient on Protonix 40mg BID -will request medical records regarding procedure/findings -Consult GI, appreciate recommendations.Had EGD 01/04/18 with Class B esophagitis noted, erythematous gastritis in the gastric, biopsies pending continue PPIs. Repeat EGD in one year per GI. To follow up as OP with GI Pt has been seen and examined by myself and Dr. Espana and this note is written on his behalf Hypertension -Patient continued on home dose of lisinopril 20 mg twice daily -Continue to monitor. Continue to monitor BP and adjust treatment accordingly Diabetic, diet controlled -diabetic heart healthy diet -Recent HgbA1c 6.0 -accuchecks and ISS. If blood sugars remain well controlled, will consider discontinuation of Accu-Cheks and insulin sliding scale Dyslipidemia -Resume home dose of Pravachol 80 mg daily Glaucoma -Resume Xalatan eyedrops DVT prophylaxis -Patient is ambulatory Thank you for this consultation. Stable medically. To follow up as OP with PCP and consultants Will sign off Aurora Cabrera MD Jan 06, 2018 15:09
[2018-01-06] MEDS ORDERED: WARFARIN SOD 1 MG TAB PO SCH (16:00)
[2018-01-06 18:00] VITALS: BP 179/76; PULSE 84; RESP 18; TEMP 98.6; O2SAT 97
--- NOTE | 2018-01-06 18:38 | PD.CONS ---
History of Present Illness Service Neurology Consult Requested By Medicine Reason for Consult Headache Primary Care Physician Unknown History of Present Illness History of Present Illness This is a 82-year-old female with a past medical history significant for depression, anxiety, history of medication overdose, hypertension, diet- controlled diabetic, glaucoma, DVT, TIA. The patient was recently admitted under Diaz act to the inpatient psychiatric unit from [facility] for suicidal ideation. She also complains of having headaches for the past 2 months and recurrent falls. She has tingling in both hands and left leg. She reports Coumadin use in the past, however states she came off this medication a year ago. She has been using Aleve for her headaches over the past couple of months with reasonable success. Currently describes her headache as a bandlike pressure on the back of her head which improves when she sits up from lying down in the bed. She denies any visual disturbances. Allergies: Coded Allergies: Sulfa (Sulfonamide Antibiotics) (Unverified Allergy, Severe, SWELLING, ) morphine (Unverified Allergy, Severe, Nausea/Vomiting, 01/05/18) penicillin G (Unverified Allergy, Severe, RASH, 01/05/18) propoxyphene (Unverified Allergy, Severe, RASH, 01/05/18) Past Medical History Hypertension History of medication overdose Depression/anxiety Diabetic, controlled with diet alone Glaucoma History of TIA DVT Past Surgical History Right total hip replacement, 2016 Hysterectomy Cholecystectomy Reported Home Medications [place] 7.5-325 mg (Hydrocodone-Acetaminophen 7.5-325 mg) 7.5 Mg/325 Mg Tab 1-2 Tab PO Q6H PRN Coumadin 1 mg (Warfarin Sodium) Warfarin Sodium 1 mg Tab 1 Mg PO DAILY Travatan Z (Travoprost) 0.004 % Bob 1 Drop EACH EYE HS Hydroxyzine Hcl (Hydroxyzine HCl) 25 Mg Tab 25 Mg PO BID PRN Zocor 40 mg (Simvastatin) 40 Mg Tab 1 Tab PO HS Lisinopril 20 mg (Lisinopril) 20 Mg Tab 1 Tab PO BID Abilify 5 mg (Aripiprazole) 5 Mg Tab 5 Mg PO DAILY Protonix (Pantoprazole Sodium) 40 Mg Tabdr 40 Mg PO BID Zoloft (Sertraline HCl) 100 Mg Tab 100 Mg PO DAILY Family History Father, age 78, COPD Mother, age 81, [place] Social History Patient denies any tobacco use, alcohol consumption or illicit drug use. (Shahbaz Palacios) Review of Systems Constitutional: Negative except HPI Eye: Negative Except HPI ENMT: Negative except HPI Respiratory: Negative except HPI Cardiovascular: Negative except HPI Gastrointestinal: Negative except HPI Nolberto/Lymph: Negative except HPI Musculoskeletal: Negative except HPI Neurologic: Negative except HPI Psychiatric: Negative except HPI All other ROS: ROS reviewed as documented in chart (Shahbaz Palacios) Past Family Social History Allergies: Coded Allergies: Sulfa (Sulfonamide Antibiotics) (Unverified Allergy, Severe, SWELLING, ) morphine (Unverified Allergy, Severe, Nausea/Vomiting, 01/05/18) penicillin G (Unverified Allergy, Severe, RASH, 01/05/18) propoxyphene (Unverified Allergy, Severe, RASH, 01/05/18) Active Ordered Medications Current Medications Medications (Trade) Dose Ordered Sig/Becky Route Start Time Stop Time Status Last Admin (Benadryl) 50 mg HS PRN PO 01/05/18 14:15 01/05/18 21:55 (Tylenol) 650 mg Q4H PRN PO 01/05/18 14:15 (Milk Of Magnesia Liq) 30 ml DAILY PRN PO 01/05/18 14:15 (Mag-Al Plus Susp Liq) 30 ml Q6H PRN PO 01/05/18 14:15 (Atarax) 50 mg Q6H PRN PO 01/05/18 14:15 01/06/18 09:43 (Abilify) 5 mg DAILY PO 01/06/18 09:00 Future Hold (Prinivil) 20 mg BID PO 01/05/18 21:00 01/06/18 09:32 (Protonix) 40 mg BID PO 01/05/18 21:00 01/06/18 09:31 (Zoloft) 100 mg DAILY PO 01/06/18 09:00 01/06/18 09:31 (Coumadin) 1 mg DAILY@1600 PO 01/06/18 16:00 Future Hold (Pravachol) 80 mg HS PO 01/05/18 21:00 01/05/18 21:56 (Xalatan 0.005% Opt Soln) 1 drop HS EACH EYE 01/05/18 21:00 01/05/18 21:00 (Shahbaz Palacios) Exam I&O / VS 01/06/18 01/06/18 01/07/18 15:00 23:00 07:00 Intake Total 600 ml 240 ml Balance 600 ml 240 ml Intake Oral 600 ml 240 ml Vital Signs Date Time Temp Pulse Resp B/P (MAP) Pulse Ox O2 Delivery O2 Flow Rate FiO2 01/06/18 18:00 98.6 84 18 179/76 (110) 97 General: Alert and Oriented, No acute distress Eye: PERRL, EOMI Respiratory: Non-labored respirations, Symmetrical expansion Cardiology: Normal rate Neurologic: Alert, Oriented, CN II-XII intact, Normal DTR's Psychiatric: Cooperative Exam Comments Oriented 3, VFF, OU 2-3 mm, no ptosis or nystagmus, no temporal artery tenderness, no drift, strength is full and equal throughout all extremities, sensory slightly diminished in the distal left lower extremity, mild rigidity in the right upper extremity, repeated lip smacking and tongue rolling noted on exam, plantar flexor (Shahbaz Palacios) Review/Management Diagnosis/Plan: (1) HTN (hypertension) ICD Codes: I10 - Essential (primary) hypertension Status: Chronic (2) Glaucoma ICD Codes: H40.9 - Unspecified glaucoma Status: Chronic Plan: Avoid Topamax (3) Depression ICD Codes: F32.9 - Major depressive disorder, single episode, unspecified Status: Acute Plan: Per psychiatric team May have developing dyskinesia secondary to psych meds (4) Tension type headache ICD Codes: G44.209 - Tension-type headache, unspecified, not intractable Plan: NSAIDs have been helpful for her in the past, however she is having reflux (5) Paresthesia ICD Codes: R20.2 - Paresthesia of skin Plan: Patient having predominantly left-sided paresthesias History of TIA Check MRI brain (Shahbaz Palacios) Daily Summary d/w PA. agree with above (Loy Zazueta MD) Shahbaz Palacios Jan 06, 2018 18:38 Loy Zazueta MD Jan 07, 2018 20:04
[2018-01-06 20:49] VITALS: BP 181/79; PULSE 78
[2018-01-06] MEDS: diphenhydrAMINE HCL 50 MG CAP PO PRN (20:49)
[2018-01-06] MEDS: PRAVASTATIN SOD 80 MG TAB PO SCH (20:49)
[2018-01-06] MEDS: LATANOPROST 0.005% OPHT SOLN 2.5 ML BTL EACH EYE SCH (21:47)
[2018-01-06 22:23] LABS: PROTHROMBIN TIME - PATIENT 10.6 SEC (9.8-11.6)
[2018-01-06 23:00] LABS: C-REACTIVE PROTEIN LESS THAN 0.29 MG/DL (0.00-0.30)
[2018-01-06] MEDS: WARFARIN SOD 1 MG TAB PO SCH (23:00)
[2018-01-07 05:00] VITALS: BP 178/82; PULSE 76; RESP 17; TEMP 99; O2SAT 96
[2018-01-07] MEDS: hydrOXYzine HCL 50 MG TAB PO PRN ×3 (06:22→20:26)
[2018-01-07] MEDS: PANTOPRAZOLE SOD 40 MG DELAYED RELEASE TAB PO SCH ×2 (09:15→20:05)
[2018-01-07] MEDS: SERTRALINE HCL 100 MG TAB PO SCH (09:15)
[2018-01-07] MEDS: LISINOPRIL 20 MG TAB PO SCH ×2 (09:15→20:06)
--- NOTE | 2018-01-07 12:28 | HHI.PYPN ---
Subjective Remarks Patient seen in [place] nurse Sabine, patient continues quite somatic with multiple very somatic complaints from headache insomnia chest pain back pain and abdominal pain. Though she is standing in no acute distress, no respiratory distress. Patient is scheduled for a MRI of the brain and C-spine and an MRA of the brain. Review of Systems Except as stated in HPI: all other systems reviewed are Neg Results Labs Test 01/06/18 22:02 Erythrocyte Sedimentation Rate 9 mm/hr Prothrombin Time 10.6 SEC Prothromb Time International Ratio 1.0 RATIO C-Reactive Protein LESS THAN 0.29 MG/DL Vitamin B12 Level 268 PG/ML Thyroid Stimulating Hormone 3rd Gen 1.950 uIU/ML Vitals/IOs Vital Signs Date Time Temp Pulse Resp B/P (MAP) Pulse Ox O2 Delivery O2 Flow Rate FiO2 01/07/18 05:00 99.0 76 17 178/82 (114) 96 Intake and Output 01/07/18 01/07/18 01/08/18 08:00 16:00 00:00 Intake Total 0 ml Balance 0 ml Assessment & Plan Problem List: (1) Major depressive disorder, recurrent, severe w/o psychotic behavior ICD Codes: F33.2 - Major depressive disorder, recurrent severe without psychotic features Assessment & Plan Estimated LOS: days patient continues somewhat depressed, continues to voice suicidal ideation. Continues markedly somatic. Some drug-seeking noted. Patient had imaging as mentioned above Justification for Cont. Inpt. At this time patient decompensated placed in a lower level of care Discharge Planning Possible return home with Abilio Ryan MD Jan 07, 2018 12:28
--- NOTE | 2018-01-07 13:51 | RADRPT ---
EXAM DATE/TIME: 01/07/2018 13:08 [facility] COMPARISON: No previous studies available for comparison. INDICATIONS : MRI clearance. MEDICAL HISTORY : None. SURGICAL HISTORY : Hysterectomy. Cholecystectomy. ENCOUNTER: Initial ACUITY: 1 day PAIN SCORE: 0/10 LOCATION: Bilateral chest FINDINGS: A single view of the chest demonstrates the lungs to be symmetrically aerated without evidence of mas s, infiltrate or effusion. The cardiomediastinal contours are unremarkable. Elevation of right trini diaphragm. Osseous structures are intact. Surgical plate in the lower cervical region. Multiple he moclips in the right upper quadrant. CONCLUSION: The lungs are clear. Santiago Lucero MD on January 07, 2018 at 13:49 Board Certified Radiologist. This report was verified electronically.
--- NOTE | 2018-01-07 13:54 | RADRPT ---
EXAM DATE/TIME: 01/07/2018 13:09 [facility] COMPARISON: No previous studies available for comparison. INDICATIONS : MRI clearance. MEDICAL HISTORY : None. SURGICAL HISTORY : Hysterectomy. Cholecystectomy. ENCOUNTER: Initial ACUITY: 1 day PAIN SCORE: 0/10 LOCATION: Bilateral Abdomen FINDINGS: Multiple hemoclips from cholecystectomy. IVC filter in place. Right total hip arthroplasty. Calcif ication of barium in scattered diverticula in the left lower quadrant. Visualized lower lungs are cl ear. Elevation right hemidiaphragm. No other metallic densities seen. CONCLUSION: IVC filter in place. Santiago Lucero MD on January 07, 2018 at 13:49 Board Certified Radiologist. This report was verified electronically.
--- NOTE | 2018-01-07 13:55 | RADRPT ---
EXAM DATE/TIME: 01/07/2018 13:11 [facility] COMPARISON: No previous studies available for comparison. INDICATIONS : MRI clearance. MEDICAL HISTORY : None. SURGICAL HISTORY : Hysterectomy. Cholecystectomy. ENCOUNTER: Initial ACUITY: 1 day PAIN SCORE: 0/10 LOCATION: Bilateral cranial FINDINGS: Two-view examination of the skull demonstrates no metallic densities. There is a mottled appearance to the frontal and parietal calvarium, uncertain significance. CONCLUSION: 1. No contraindication to MRI seen. 2. Mottled hypodense appearance to the frontal and parietal calvarium, of uncertain significance. Santiago Lucero MD on January 07, 2018 at 13:53 Board Certified Radiologist. This report was verified electronically.
[2018-01-07] MEDS: WARFARIN SOD 1 MG TAB PO SCH (16:00)
--- NOTE | 2018-01-07 16:23 | RADRPT ---
EXAM DATE/TIME: 01/07/2018 15:38 [facility] COMPARISON: No previous studies available for comparison. INDICATIONS : CVA. MEDICAL HISTORY : Hypertension. GERD, Hyperlipidemia. SURGICAL HISTORY : Cholecystectomy. Hysterectomy. Knee sx. ENCOUNTER: Initial ACUITY: 1 day PAIN SCORE: 2/10 LOCATION: Bilateral cranial TECHNIQUE: Multiplanar, multisequence MRI of the brain was performed without contrast. FINDINGS: CEREBRUM: The ventricles are normal for age. No evidence of midline shift, mass lesion, hemorrhage or acute in farction. No extraaxial fluid collections are seen. The pituitary gland and suprasellar cistern are normal in configuration. WHITE MATTER: Achiev mild benign-appearing white matter T2 prolongation. POSTERIOR FOSSA: The cerebellum and brainstem are intact. The 4th ventricle is midline. The cerebellopontine angle is unremarkable. The cerebellar tonsils are normal in position. DIFFUSION IMAGING: No focal areas of restricted diffusion are seen. No evidence of acute infarction. EXTRACRANIAL: The visualized portions of the orbits and paranasal sinuses are unremarkable. CONCLUSION: Mild benign-appearing white matter signal changes. No evidence of acute intracranial process. Abilio Valera MD on January 07, 2018 at 16:09 Board Certified Radiologist. This report was verified electronically.
--- NOTE | 2018-01-07 16:32 | RADRPT ---
EXAM DATE/TIME: 01/07/2018 15:38 [facility] COMPARISON: No previous studies available for comparison. INDICATIONS : CVA. MEDICAL HISTORY : Hypertension. Hyperlipidemia, GERD. SURGICAL HISTORY : Cholecystectomy. Hysterectomy. Knee sx. ENCOUNTER: Initial ACUITY: 1 day PAIN SCORE: 2/10 LOCATION: Bilateral cranial Please note a normal MRA of the brain does not entirely exclude the possibility of a small aneurysm, nor the possibility of distal intracranial vessel disease. TECHNIQUE: 3D time of flight MRA was performed. Source images, multiplanar STS MIP, and 3D volume MIP reconstru ctions were reviewed. FINDINGS: There is excellent visualization of the major intracranial arteries out to the second-order branch ve ssels. There is no evidence for aneurysm, vessel truncation or stenosis, and no evidence for vascula r malformation. The posterior cerebral arteries arise in fashion is a variant of normal. CONCLUSION: No acute [place] vascular findings. Abilio Valera MD on January 07, 2018 at 16:25 Board Certified Radiologist. This report was verified electronically.
--- NOTE | 2018-01-07 17:51 | RADRPT ---
EXAM DATE/TIME: 01/07/2018 15:38 [place] COMPARISON: CHEST SINGLE AP, January 07, 2018, 13:08. INDICATIONS : Myelopathy. MEDICAL HISTORY : Hypertension. Hyperlipidemia, GERD. SURGICAL HISTORY : Cholecystectomy. Hysterectomy. Knee sx. ENCOUNTER: Initial ACUITY: 1 day PAIN SCORE: 2/10 LOCATION: Bilateral neck region. TECHNIQUE: Multiplanar, multisequence MRI examination of the cervical spine was performed. FINDINGS: Mildly motion degraded exam. VERTEBRAE: Previous ventral cervical fusion extending from C5-C7. There is slight anterolisthesis of C3 relative to C4. Alignment is otherwise satisfactory. Visualized marrow signal appears benign throughout. ALIGNMENT: Slight anterolisthesis of C3 relative to C4 CORD: Normal configuration and signal. POST FOSSA: The cerebellar tonsils are normal in position. C2-C3: The thecal sac has a normal configuration. There is no evidence of disc herniation or spinal canal s tenosis. The neural foramina are patent bilaterally. C3-C4: Broad undulating dorsal disc protrusion mildly asymmetric to the right with moderate indentation of t he thecal sac. Mild asymmetrically right-sided foraminal narrowing. Mild degree of canal stenosis. C4-C5: Broad slight undulating dorsal disc protrusion mildly indenting ventral thecal sac. Dorsal ligamentou s hypertrophy. Mild canal stenosis. Foramina are adequate. C5-C6: Fused level. Satisfactory canal and foramina. C6-C7: Fused level. Satisfactory canal and foramina C7-T1: Broad central to left paracentral disc protrusion with mild indentation of the thecal sac and mild ef facement of left lateral recess. Canal is adequate. Foramina are adequate. CONCLUSION: Previous cervical fusion. Disc protrusions above and below the fusion with mild degree of canal steno sis, most significantly at C4-5. There is motion degradation on this study and therefore if there is contemplation of surgical intervention or other therapeutic intervention, correlation with CT myelogr aphy may be helpful. Abilio Valera MD on January 07, 2018 at 17:33 Board Certified Radiologist. This report was verified electronically.
[2018-01-07 18:23] VITALS: BP 159/70; PULSE 77; RESP 18; TEMP 98.2; O2SAT 98
[2018-01-07] MEDS: LATANOPROST 0.005% OPHT SOLN 2.5 ML BTL EACH EYE SCH (20:05)
[2018-01-07] MEDS: diphenhydrAMINE HCL 50 MG CAP PO PRN (20:05)
[2018-01-07] MEDS: PRAVASTATIN SOD 80 MG TAB PO SCH (20:05)
[2018-01-08 05:22] VITALS: BP 139/70; PULSE 87; RESP 16; TEMP 98.1; O2SAT 98
--- NOTE | 2018-01-08 08:52 | HHI.PYPN ---
Subjective Remarks Patient seen in her room with nurse Wero, chart review, patient discussed with nurse. Reviewed imaging findings with patient also. Patient is complaining of some sleep issues. Continues to verify suicidality that she would take the suicide pill. Neurology has consulted neurosurgery there is a imaging finding of cervical canal stenosis that neurology wishes to be assessed by neurosurgery Review of Systems Except as stated in HPI: all other systems reviewed are Neg Results Vitals/IOs Vital Signs Date Time Temp Pulse Resp B/P (MAP) Pulse Ox O2 Delivery O2 Flow Rate FiO2 01/08/18 05:22 98.1 87 16 139/70 (93) 98 Intake and Output 01/08/18 01/08/18 01/09/18 08:00 16:00 00:00 Intake Total 0 ml Balance 0 ml Assessment & Plan Problem List: (1) Major depressive disorder, recurrent, severe w/o psychotic behavior ICD Codes: F33.2 - Major depressive disorder, recurrent severe without psychotic features Assessment & Plan Estimated LOS: days patient continues depressed with suicidal ideation. Medical, neurological workup continues. We'll add Remeron at at bedtime to medication Justification for Cont. Inpt. At this time patient decompensated placed in a lower level of care Discharge Planning Hopefully to return home to family Abilio Ryan MD Jan 08, 2018 08:51
[2018-01-08] MEDS: LISINOPRIL 20 MG TAB PO SCH ×2 (09:06→21:00)
[2018-01-08] MEDS: PANTOPRAZOLE SOD 40 MG DELAYED RELEASE TAB PO SCH ×2 (09:06→21:00)
[2018-01-08] MEDS: SERTRALINE HCL 100 MG TAB PO SCH (09:06)
[2018-01-08] MEDS: WARFARIN SOD 1 MG TAB PO SCH (16:48)
[2018-01-08 17:15] VITALS: BP 139/84; PULSE 74; RESP 17; TEMP 98.4; O2SAT 97
[2018-01-08] MEDS: LATANOPROST 0.005% OPHT SOLN 2.5 ML BTL EACH EYE SCH (21:00)
[2018-01-08] MEDS ORDERED: MIRTAZAPINE 15 MG TAB PO SCH (21:00)
[2018-01-08] MEDS: PRAVASTATIN SOD 80 MG TAB PO SCH (21:00)
[2018-01-09 06:14] VITALS: BP 158/80; PULSE 84; RESP 18; TEMP 98.4; O2SAT 99
[2018-01-09] MEDS: SERTRALINE HCL 100 MG TAB PO SCH (08:31)
[2018-01-09] MEDS: ARIPiprazole 5 MG TAB PO SCH (08:31)
[2018-01-09] MEDS: LISINOPRIL 20 MG TAB PO SCH ×2 (08:31→20:05)
[2018-01-09] MEDS: PANTOPRAZOLE SOD 40 MG DELAYED RELEASE TAB PO SCH ×2 (08:31→20:05)
--- NOTE | 2018-01-09 11:59 | HHI.PYPN ---
Subjective Remarks Patient seen in dayroom with nurse Wero and medical student Juan M. Chart reviewed. Patient discussed with nurse noted that patient slid to the floor sitting on the floor earlier this morning. There is no head trauma she slid down her walker onto her buttocks. There is no signs of injury noted Patient alert continues somewhat manipulative behavior. Today is vacillating whether she wishes to return home or not. Is vague about suicidality today. For now continue treatment will increase at bedtime Remeron to 30 mg Review of Systems Except as stated in HPI: all other systems reviewed are Neg Results Vitals/IOs Vital Signs Date Time Temp Pulse Resp B/P (MAP) Pulse Ox O2 Delivery O2 Flow Rate FiO2 01/09/18 06:14 98.4 84 18 158/80 (106) 99 Intake and Output 01/09/18 01/09/18 01/10/18 08:00 16:00 00:00 Intake Total 0 ml Balance 0 ml Assessment & Plan Problem List: (1) Major depressive disorder, recurrent, severe w/o psychotic behavior ICD Codes: F33.2 - Major depressive disorder, recurrent severe without psychotic features Assessment & Plan Estimated LOS: days patient remains somewhat depressed though now also somewhat ambiguous about placement and suicidality. See medication adjustment above Justification for Cont. Inpt. At this time patient will decompensate if placed in a lower level of care Discharge Planning To be determined placement may become somewhat problematic Abilio Ryan MD Jan 09, 2018 11:59
--- NOTE | 2018-01-09 15:02 | MB ---
cc: OPAL FIGUEROA MD, ROHIT K. M.D. DATE OF CONSULTATION: 01/09/2018. REASON FOR CONSULTATION: Cervical stenosis. HISTORY OF PRESENT ILLNESS: 82-year-old female who was admitted on 01/05/2018 to the psychiatric unit related to major depression with suicidal ideation and was Diaz Acted. She remains in the psychiatric cabral. Neurology was consulted for complaints of headaches as well as recurrent falls and tingling in her hands and left leg. At this point, she relates some unsteadiness and some numbness and tingling in the left hand in particular. She has been ambulating the hallways. Work up included MRI scan of the brain and cervical spine. The brain MRI scan did not reveal any intracranial process and the cervical spine reveals a previous fusion at C5-6 and C6-7 levels undertaken I believe around ten [address] Abhilash Solares with subsequent instrumentation failure requiring revision surgery shortly thereafter. A recent MRI scan is limited from motion artifact but does appear to show some mild to moderate stenosis at C4-5 level as well as mild C3-4 and C7-T1 levels. PAST MEDICAL HISTORY: 1. Depression. 2. Anxiety. 3. Diabetes. 4. History of TIA. 5. Hypertension. 6. Glaucoma. 7. History of medication overdose. 8. Multiple orthopedic surgeries including hip replacement on the right side. CURRENT MEDICATIONS: Medications currently include: 1. Coumadin 1 milligram daily. 2. Abilify 5 milligrams daily. 3. Remeron 50 milligrams at bedtime. 4. Lisinopril 20 milligrams twice a day. 5. Zoloft 100 milligrams daily. 6. Protonix 40 milligrams twice a day. 7. Pravachol 80 milligrams at bedtime. ALLERGIES: 1. SULFA. 2. MORPHINE. 3. PENICILLIN. 4. PROPOXYPHENE. SOCIAL HISTORY: She is . She does admit to alcohol use, although states that she quit smoking recently. REVIEW OF SYSTEMS: Complains of occipital area headache. Complains of some numbness in the left upper extremity. Complains of unsteadiness in her gait. Denies any weakness or incontinence. All other pertinent positives mentioned in the history of present illness. The rest are negative. LABORATORY STUDIES: Sedimentation rate is 9. PT 10.6. INR 1. PHYSICAL EXAMINATION: GENERAL CONDITION: This is an elderly female who is sitting in the psychiatric cabral social history in no acute distress. VITAL SIGNS: Temperature 98.2, pulse is 77, respiratory rate is 18, blood pressure 159/70, oxygen saturation is 98% on room air. HEAD: Normocephalic and atraumatic. NECK: The neck is supple with no guarding or rigidity. Trachea is midline. No lymphadenopathy. CHEST: Clear to auscultation bilaterally. HEART: Regular rate and rhythm. Normal S1 and S2. ABDOMEN: Abdomen soft and nontender. No hepatosplenomegaly. EXTREMITIES: No cyanosis, clubbing or edema. SKIN: No breakdown or rashes or pustules. NEUROLOGICAL EXAMINATION: She is awake, alert. She is oriented. Cranial nerves are grossly intact. Motor strength is 5/5 in the upper and lower extremities. She relates decreased sensation on the left side in the forearm and hand compared to the right side. She has negative Babinski. Negative Navi's. Ambulates with the use of a walker. Denies any incontinence. IMPRESSION: 1. Mild to moderate C4-5 cervical stenosis with mild stenosis of ____ levels and the previous C5-6 and C6-7 anterior cervical discectomy with fusion and subsequent instrumentation revision by Dr. Solares about ten years ago. 2. Major depression with suicidal ideation currently undergoing inpatient psychiatric treatment. The neurologist feels that she may have some dyskinesia as related to the psychiatric medications. PLAN: At this point, I recommend she continue with conservative management for her C5-6 mild to moderate cervical stenosis. She would benefit from physical therapy as well as symptomatic treatment. This was discussed with the patient who understands and is in agreement. Also discussed with nursing staff. MD ABDI Mcguire/PILO /8:58 AM /12:46 PM
[2018-01-09] MEDS: WARFARIN SOD 1 MG TAB PO SCH (16:00)
[2018-01-09] MEDS: LATANOPROST 0.005% OPHT SOLN 2.5 ML BTL EACH EYE SCH (20:04)
[2018-01-09] MEDS: PRAVASTATIN SOD 80 MG TAB PO SCH (20:05)
[2018-01-09] MEDS: MIRTAZAPINE 15 MG TAB PO SCH (20:05)
[2018-01-09] MEDS: hydrOXYzine HCL 50 MG TAB PO PRN (20:05)
[2018-01-09 22:01] VITALS: BP 132/70; PULSE 76; RESP 14; TEMP 98; O2SAT 98
[2018-01-10] MEDS: hydrOXYzine HCL 50 MG TAB PO PRN ×3 (05:01→21:33)
[2018-01-10 05:50] VITALS: BP 158/77; PULSE 79; RESP 18; TEMP 98.4; O2SAT 96
[2018-01-10] MEDS: LISINOPRIL 20 MG TAB PO SCH ×2 (08:16→21:34)
[2018-01-10] MEDS: PANTOPRAZOLE SOD 40 MG DELAYED RELEASE TAB PO SCH ×2 (08:16→21:34)
[2018-01-10] MEDS: ARIPiprazole 5 MG TAB PO SCH (08:16)
[2018-01-10] MEDS: SERTRALINE HCL 100 MG TAB PO SCH (08:16)
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
[2018-01-10] MEDS: WARFARIN SOD 1 MG TAB PO SCH (17:00)
[2018-01-10 18:04] VITALS: BP 160/72; PULSE 76; RESP 18; TEMP 97.7; O2SAT 97
[2018-01-10] MEDS: MIRTAZAPINE 15 MG TAB PO SCH (21:00)
[2018-01-10] MEDS: PRAVASTATIN SOD 80 MG TAB PO SCH (21:33)
[2018-01-10] MEDS: LATANOPROST 0.005% OPHT SOLN 2.5 ML BTL EACH EYE SCH (21:35)
[2018-01-11 05:36] VITALS: PULSE 73; RESP 18; TEMP 98.4; O2SAT 97
[2018-01-11] MEDS: ARIPiprazole 5 MG TAB PO SCH (08:27)
[2018-01-11] MEDS: SERTRALINE HCL 100 MG TAB PO SCH (08:28)
[2018-01-11] MEDS: PANTOPRAZOLE SOD 40 MG DELAYED RELEASE TAB PO SCH ×2 (08:28→19:58)
[2018-01-11] MEDS: LISINOPRIL 20 MG TAB PO SCH ×2 (08:40→19:58)
[2018-01-11 09:08] LABS: INTERNATIONAL NORMALIZED RATIO 1.1 RATIO; PROTHROMBIN TIME - PATIENT 11.3 SEC (9.8-11.6)
--- NOTE | 2018-01-11 14:04 | HHI.PYPN ---
Subjective Remarks Pt seen and discussed with staff. She has been anxious and focused on sleep. She refused mirtazapine last night and reports that she did so because it seemed to exacerbate nightmares. She took hydroxyzine instead and reports that sleep was much better. She refuses to continue mirtazapine but has no problems with other medications. She denies SI/HI today. Mental Status Examination Appearance: Disheveled Consciousness: Alert Orientation: x4 Motor Activity: Normal gait Speech: Unremarkable Language: Adequate Fund of Knowledge: Adequate Attention and Concentration: Adequate Memory: Unremarkable Mood: Anxious, Other (depressed) Affect: Other (depressed) Thought Process & Associations: Linear Thought Content: Other (guilt) Hallucination Type: None Delusion Type: None Suicidal Ideation: No Suicidal Plan: No Suicidal Intention: No Homicidal Ideation: No Homicidal Plan: No Homicidal Intention: No Insight: Fair Judgment: Impulsive Results Labs Test 01/11/18 08:15 Prothrombin Time 11.3 SEC Prothromb Time International Ratio 1.1 RATIO Vitals/IOs Vital Signs Date Time Temp Pulse Resp B/P (MAP) Pulse Ox O2 Delivery O2 Flow Rate FiO2 01/11/18 05:36 98.4 73 18 97 Intake and Output 01/11/18 01/11/18 01/12/18 08:00 16:00 00:00 Intake Total 240 ml Balance 240 ml Assessment & Plan Problem List: (1) Major depressive disorder, recurrent, severe w/o psychotic behavior ICD Codes: F33.2 - Major depressive disorder, recurrent severe without psychotic features Assessment & Plan Continue current tx plan Estimated LOS: days Justification for Cont. Inpt. risk of decompensation Alecia Hummel MD Jan 11, 2018 14:04
[2018-01-11] MEDS: WARFARIN SOD 1 MG TAB PO SCH (16:00)
[2018-01-11 18:07] VITALS: BP 188/78; PULSE 87; RESP 18; TEMP 98.6; O2SAT 96
[2018-01-11] MEDS: LATANOPROST 0.005% OPHT SOLN 2.5 ML BTL EACH EYE SCH (19:58)
[2018-01-11] MEDS: PRAVASTATIN SOD 80 MG TAB PO SCH (19:59)
[2018-01-11] MEDS: hydrOXYzine HCL 50 MG TAB PO PRN (20:01)
[2018-01-12 06:13] VITALS: BP 164/77; PULSE 80
[2018-01-12] MEDS: PANTOPRAZOLE SOD 40 MG DELAYED RELEASE TAB PO SCH ×2 (08:35→20:15)
[2018-01-12] MEDS: SERTRALINE HCL 100 MG TAB PO SCH (08:35)
[2018-01-12] MEDS: LISINOPRIL 20 MG TAB PO SCH ×2 (08:35→20:15)
[2018-01-12] MEDS: ARIPiprazole 5 MG TAB PO SCH (08:35)
--- NOTE | 2018-01-12 09:45 | HHI.PYPN ---
Subjective Remarks Seen in yi floor staff, chart reviewed, patient discussed with RN. Ending psychiatrist note from weekend also reviewed and agreed with. Will discontinue Remeron. It appears patient had some response to Atarax. We'll schedule Atarax 50 mg at at bedtime. Patient continues somewhat somatic focusing on her bowels. Does wish to go home with her family when possible. Today She is a vague about suicidality. Review of Systems Except as stated in HPI: all other systems reviewed are Neg Mental Status Examination Appearance: Disheveled Consciousness: Alert Orientation: x4 Motor Activity: Normal gait Speech: Unremarkable Language: Adequate Fund of Knowledge: Adequate Attention and Concentration: Adequate Memory: Unremarkable Mood: Anxious, Other (depressed) Affect: Other (depressed) Thought Process & Associations: Linear Thought Content: Other (guilt) Hallucination Type: None Delusion Type: None Suicidal Ideation: No Suicidal Plan: No Suicidal Intention: No Homicidal Ideation: No Homicidal Plan: No Homicidal Intention: No Insight: Fair Judgment: Impulsive Results Vitals/IOs Vital Signs Date Time Temp Pulse Resp B/P (MAP) Pulse Ox O2 Delivery O2 Flow Rate FiO2 01/12/18 06:13 80 164/77 (106) 01/11/18 18:07 98.6 18 96 Intake and Output 01/12/18 01/12/18 01/13/18 08:00 16:00 00:00 Intake Total 0 ml 240 ml Balance 0 ml 240 ml Assessment & Plan Problem List: (1) Major depressive disorder, recurrent, severe w/o psychotic behavior ICD Codes: F33.2 - Major depressive disorder, recurrent severe without psychotic features Assessment & Plan Estimated LOS: days she somewhat calmer focused today. Did seem to respond positively with Atarax at bedtime for sleep. We'll schedule that. Otherwise discontinue the Remeron and continue treatment Justification for Cont. Inpt. At this time patient with decompensated placed in a lower level of care Discharge Planning Return home to family Abilio Ryan MD Jan 12, 2018 09:44
[2018-01-12] MEDS: WARFARIN SOD 1 MG TAB PO SCH (15:59)
[2018-01-12 18:15] VITALS: BP 151/81; PULSE 73; RESP 18; TEMP 98.7; O2SAT 98
[2018-01-12] MEDS: LATANOPROST 0.005% OPHT SOLN 2.5 ML BTL EACH EYE SCH (20:15)
[2018-01-12] MEDS: PRAVASTATIN SOD 80 MG TAB PO SCH (20:15)
[2018-01-12] MEDS ORDERED: hydrOXYzine HCL 50 MG TAB PO SCH (21:00)
[2018-01-12] MEDS ORDERED: QUEtiapine FUMARATE 25 MG TAB PO SCH (21:00)
[2018-01-13 05:16] VITALS: BP 157/89; PULSE 86; RESP 17; TEMP 97.8; O2SAT 98
[2018-01-13] MEDS: PANTOPRAZOLE SOD 40 MG DELAYED RELEASE TAB PO SCH (08:07)
[2018-01-13] MEDS: LISINOPRIL 20 MG TAB PO SCH (08:07)
[2018-01-13] MEDS: SERTRALINE HCL 100 MG TAB PO SCH (08:07)
[2018-01-13] MEDS: ARIPiprazole 5 MG TAB PO SCH (08:07)
[2018-01-13] MEDS ORDERED: COUM1TAB PO (08:48)
[2018-01-13] MEDS ORDERED: PRAV80TA PO (08:48)
[2018-01-13] MEDS ORDERED: HYDR50TA94 PO ×2 (08:48)
[2018-01-13] MEDS ORDERED: ARIP1TAB11 PO (08:48)
[2018-01-13] MEDS ORDERED: LISI-515 PO (08:48)
[2018-01-13] MEDS ORDERED: ZOLO100T PO (08:48)
[2018-01-13] MEDS ORDERED: PANT40TA3 PO (08:48)
--- NOTE | 2018-01-13 08:55 | HHI.DS ---
Psychiatry Discharge Summary Inpatient Psychiatric care?: Yes Advance Directive: No Mental Health AdvanceDirective: No Health Care Proxy: No Admission Admission Date Jan 05, 2018 at 13:32 Admission Diagnosis: (1) Major depressive disorder, recurrent, severe w/o psychotic behavior ICD Code: F33.2 - Major depressive disorder, recurrent severe without psychotic features Brief History Patient was just discharged from so she could receive a colonoscopy. This was accomplished. The patient being readmitted a few hours later under a new ability number thus this note has to be dictated. Please see dictation under that visit number I just mentioned for full H and P thank you Tobacco Use In Past 30 Days: No Tobacco Past 30 Days Alcohol Use: Monthly or Less Hospital Course Patient also course was noted for patients initial isolation poor participation in group and somatizations. However a she acclimated to the groups of the milieu she became more compliant with her medications. The intensity from to the somatizations did soften somewhat. The remain some manipulation. Focusing on various medications. At times very somatizations. Moreover overall she did improve her mood became better, she did spend more time out in the milieu and the day room. The family feel she is reaching her baseline. Treatment somewhat somatic with the staff and the family feel this is somewhat of her baseline. Thus at the present time we feel the patient reached a maximum benefit of this hospitalization. Patient to be discharged today to her family with Rx 1 month. To follow-up [facility] follow-up follow-up with PCP for her various medical issues Results Blood Pressure 157 / 89 Vital Signs Date Time Temp Pulse Resp B/P (MAP) Pulse Ox O2 Delivery O2 Flow Rate FiO2 01/13/18 05:16 97.8 86 17 157/89 (111) 98 Laboratory Tests Test 01/11/18 08:15 Summary of Procedures None done Imaging Last Impressions Skull X-Ray 01/07/18 0000 Signed Impressions: Service Date/Time: Sunday, January 07, 2018 13:11 - CONCLUSION: 1. No contraindication to MRI seen. 2. Mottled hypodense appearance to the frontal and parietal calvarium, of uncertain significance. Santiago Lucero MD Head Magnetic Resonance Angiography 01/07/18 0000 Signed Impressions: Service Date/Time: Sunday, January 07, 2018 15:38 - CONCLUSION: No acute [place] vascular findings. Abilio Valera MD Chest X-Ray 01/07/18 0000 Signed Impressions: Service Date/Time: Sunday, January 07, 2018 13:08 - CONCLUSION: The lungs are clear. Santiago Lucero MD Cervical Spine MRI 01/07/18 0000 Signed Impressions: Service Date/Time: Sunday, January 07, 2018 15:38 - CONCLUSION: Previous cervical fusion. Disc protrusions above and below the fusion with mild degree of canal stenosis, most significantly at C4-5. There is motion degradation on this study and therefore if there is contemplation of surgical intervention or other therapeutic intervention, correlation with CT myelography may be helpful. Abilio Valera MD Brain MRI 01/07/18 0000 Signed Impressions: Service Date/Time: Sunday, January 07, 2018 15:38 - CONCLUSION: Mild benign-appearing white matter signal changes. No evidence of acute intracranial process. Abilio Valera MD Abdomen X-Ray 01/07/18 0000 Signed Impressions: Service Date/Time: Sunday, January 07, 2018 13:09 - CONCLUSION: IVC filter in place. Santiago Lucero MD Pending results at discharge: No Medications # of Antipsychotic meds at D/C: 1 Approp Antipsych med options 1 - Minimum of three failed multiple trials of monotherapy. 2 - Documented plan to taper to monotherapy due to previous use of multiple meds OR cross-taper in progress at D/C. 3 - Documentation of augmentation of Clozapine. 4 - Justification other than those listed in allowable values 1-3, document here : Discharge Discharge Date: Jan 13, 2018 Discharge Diagnosis: (1) Major depressive disorder, recurrent, severe w/o psychotic behavior Diagnosis: Principal ICD Code: F33.2 - Major depressive disorder, recurrent severe without psychotic features Pt Condition on Discharge: Stable Discharge Disposition: Discharge Home Discharge Instructions Diet Instructions: As Tolerated, No Restrictions Activities you can perform: Regular-No Restrictions Scheduled Appointment: Hakeem Coy Discharge Time > 30 minutes Mental Status Examination Appearance: Disheveled Consciousness: Alert Orientation: x4 Motor Activity: Normal gait Speech: Unremarkable Language: Adequate Fund of Knowledge: Adequate Attention and Concentration: Adequate Memory: Unremarkable Mood: Anxious, Other (depressed) Affect: Other (depressed) Thought Process & Associations: Linear Thought Content: Other (guilt) Hallucination Type: None Delusion Type: None Suicidal Ideation: No Suicidal Plan: No Suicidal Intention: No Homicidal Ideation: No Homicidal Plan: No Homicidal Intention: No Insight: Fair Judgment: Impulsive Discharge/Advance Care Plan Health Problems: (1) Major depressive disorder, recurrent, severe w/o psychotic behavior Goals to promote your health * To prevent worsening of your condition and complications * To maintain your health at the optimal level Directions to meet your goals Take your medications as prescribed Follow your dietary instruction Follow activity as directed Keep your appointments as scheduled Take your immunizations and boosters as scheduled If your symptoms worsen call your PCP, if no PCP go to Urgent Care Center or Emergency Room For 09/06 questions related to your inpatient stay or results of tests pending at discharge, please contact Dr. Abilio Ryan at Smoking is Dangerous to Your Health. Avoid second hand smoking Abilio Ryan MD Jan 13, 2018 08:55
== END 2018-01-13 11:20 | disposition home or self-care (01) | DRG 885 ==
LOC: H250 13:32
PROVIDERS: ADMIT Psychiatry & Neurology Psychiatry; ATTEND Psychiatry & Neurology Psychiatry
DX: F33.2 Major depressive disorder, recurrent severe without psychotic features (principal); E11.9 Type 2 diabetes mellitus without complications; R45.851 Suicidal ideations; M48.02 Spinal stenosis, cervical region; R13.10 Dysphagia, unspecified; K21.0 Gastro-esophageal reflux disease with esophagitis; K29.70 Gastritis, unspecified, without bleeding; I10 Essential (primary) hypertension; E78.5 Hyperlipidemia, unspecified; H40.9 Unspecified glaucoma; R20.2 Paresthesia of skin; G44.209 Tension-type headache, unspecified, not intractable; R29.6 Repeated falls; Z96.641 Presence of right artificial hip joint; Z79.899 Other long term (current) drug therapy; Z79.01 Long term (current) use of anticoagulants; Z87.891 Personal history of nicotine dependence; Z98.1 Arthrodesis status; Z86.73 Personal history of transient ischemic attack (TIA), and cerebral infarction without residual deficits; F41.9 Anxiety disorder, unspecified; Z76.5 Malingerer [conscious simulation]; R10.13 Epigastric pain
CPT/HCPCS: 70250; 70544; 70551; 71045; 72141; 74018; 82607; 84443; 85610; 85652; 86140; Q0163

== ENCOUNTER → 2018-01-05 | Outpatient (CLI) | payer MEDICARE ==
[~2018-01-05] MED LIST changes: +ARIP1TAB11 PO; +HYDR50TA94 PO; +LIDOCAINE HCL 1% PF 5 ML SYRINGE OTHER ONE; +LISI-515 PO; +PANT40TA3 PO; +PRAV80TA PO; +PROPOFOL 200 MG/20 ML AMP IV ONE; +ZOLO100T PO
--- NOTE | 2018-01-05 12:28 | GIPROC ---
[facility] [address] [facility]. [facility] [place], [address] EGD PROCEDURE REPORT EXAM DATE: 01/05/2018 PATIENT NAME: Chrissy Sanchez MR #: [id number] BIRTHDATE: 1935 ATTENDING: Erik Espana MD ORDER #: [id number] MANAGER INVENTORY CONTROL: Roslyn Enrique RN STATUS: outpatient INDICATIONS: The patient is a 82 yr old female here for an EGD due to dyspepsia and dysphagia PROCEDURE PERFORMED: EGD w/ biopsy MEDICATIONS: None and Per Anesthesia. TOPICAL ANESTHETIC: CONSENT: The patient understands the risks and benefits of the procedure and understands that these risks include, but are not limited to: sedation, allergic reaction, infection, perforation and/or bleeding. Alternative means of evaluation and treatment include, among others: physical exam, x-rays, and/or surgical intervention. The patient elects to proceed with this endoscopic procedure. medical equipment was checked for proper function. Hand hygiene and appropriate measures for infection prevention was taken. After the risks, benefits and alternatives of the procedure were thoroughly explained, Informed consent was verified, confirmed and timeout was successfully executed by the treatment team. The patient was anesthetized with topical anesthesia and the RadioFrameax [id number] endoscope was introduced through the mouth and advanced to the second portion of the duodenum. Retroflexed views revealed no abnormalities The gastroscope was then slowly withdrawn and removed. ESOPHAGUS: There was LA Class B esophagitis noted. A biopsy was performed using cold forceps. Sample sent for histology. STOMACH: There was erythematous moderate gastritis in the gastric antrum. A biopsy was performed using cold forceps. Sample sent for histology. DUODENUM: The duodenal mucosa appeared normal in the bulb and second portion of the duodenum. ADVERSE EVENTS: There were no complications. IMPRESSIONS: 1. There was LA Class B esophagitis noted; biopsy was performed 2. There was erythematous gastritis in the gastric antrum; biopsy was performed 3. Normal duodenal mucosa in the bulb and second portion of the duodenum 4. Retroflexed views revealed no abnormalities RECOMMENDATIONS: 1. Await biopsy results. Biopsy results will not be ready for 7-10 days. If you don't hear from us in two weeks, call our office for biopsy results. 2. Anti-reflux regimen 3. Continue PPI PATIENT CONDITION: stable DISPOSITION: Inpatient REPEAT EXAM: Return 1 year EGD pending biopsy results Erik Espana MD eSigned: Erik Espana MD 01/05/2018 12:28 PM cc: PATIENT NAME: Chrissy Sanchez Fanny MR#: [id number]
[2018-01-05 12:41] VITALS: BP 164/71; PULSE 81; RESP 18; TEMP 97.9; O2SAT 95
--- NOTE | 2018-01-05 22:43 | EKG ---
Date Performed: 01/05/2018 Time Performed: 11:46:08 PTAGE: 82 years EKG: Sinus rhythm RIGHT BUNDLE BRANCH BLOCK ABNORMAL ECG PREVIOUS TRACING : 01/31/2009 13.34 DOCTOR: Paul Ansari Interpretating Date/Time 01/05/2018 22:42:39
== END ==
LOC: HEND 11:29
PROVIDERS: ATTEND Internal Medicine Gastroenterology
DX: R13.10 Dysphagia, unspecified (principal); R10.13 Epigastric pain; K20.9 Esophagitis, unspecified; K29.70 Gastritis, unspecified, without bleeding
CPT/HCPCS: 88305; 88312; 93005